=== PATIENT | female | born 1975 | race Caucasian/White ===

== ENCOUNTER 2017-05-21 06:48 | Inpatient (IN) | payer BC ==
--- NOTE | 2017-05-22 06:32 | PCM.LDHP ---
L&D History of Present Illness - General Date of Service: 05/22/17 Admit Problem/Dx: Admission Diagnosis/Problem Admission Diagnosis/Problem 05/22/17 06:17 41-year-old 11 para 5055 with an JAY of 05/31/2017. With an 8.7 cm placenta/umbilical cord cyst admitted for a induction of labor. Source of Information: Patient History Limitations: Reports: No Limitations - History of Present Illness Introduction:: Jalyn Ferguson" is a 41-year-old 11 para 5055 white female who is admitted for induction of labor because of a large placental/vocal cord cyst which is developed during the course of her . It has reached a size 9.9 cm and on last ultrasound on 05/19/2017 decreased 8.7 cm. Because of this and concerns related to follow it might and she is presently at 38-5/7 weeks gestational age. Discussion has been held with patient concerning induction. She has been induced in the past and is aware of the procedure, risks, benefits and possible complications and alternatives. She wishes to proceed. 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 JAY set at 05/31/2017 by last menstrual period which was certain in nature, using no contraception the time of conception and occurring on 08/24/2016. Patient has had numerous ultrasounds since that time supportive of her LMP dating. Her obstetric history includes miscarriages 5 with one of those occurring in second trimester. She has had 5 full-term deliveries. Largest baby is benign pounds 2 ounces. All have been born via spontaneous vaginal delivery. She had menarche at age 15. Cycles somewhat irregular. HCG is positive on 09/20/2016. LMP started 08/24/2016. Etiology of miscarriages was not determined. course patient has had a course that been remarkable with the exception of the development of the umbilical cord/placental cyst. This is noted on her very first visit. It had grown to 9.9 cm last week but has not decreased 8.7 cm. It does not appear to be a vascular structure and is not felt to be a potential problem with the actual delivery. Discussion with [facility] indicates most probable problem with this would be shunting of blood. This does not appear to have happened with multiple ultrasounds, biophysical profiles and growth evaluations indicating normal growth and well-being. Risk factors for include age of 41, group B strep positive status, history of macrosomic infant with 9 lbs. 2 oz. baby delivered previously, multiple losses and the umbilical cord cyst. Her depression screening score on 12/29/2016 was normal at 0/30. HeartMate test was done on 02/22 and returned normal with the biophysical profiles have been normal. Patient was seen early in the with first visit seen on 2016 at 13 weeks and 5 days. Her weight increased from 197 pounds at that point to 217 pounds for a 20 pound weight gain. Her vital signs are stable throughout the course. Fundal height growth was appropriate and also ultrasound estimated growth was normal. Laboratory testing and shows blood which is AB+. Initial hemoglobin was 12.7 g/dL and platelets were 204,000. Pap smear was normal. She is rubella immune. RPR is nonreactive. Urine culture was positive and C4 group B strep. Hepatitis B and HIV assays were both negative as were Chlamydia and gonorrhea assays. Her second trimester testing showed a hemoglobin which is mildly decreased at 11.1 g/dL. Platelets are 179,000. One-hour GTT was normal at 129. Her group B strep screen was positive. Allergies: none Medications: 1. vitamins. 2. Ferrous sulfate 325 mg daily Past medical history: 1. Vaginal delivery 5 2. Miscarriage 5 Past surgical history: 1. D&C 2 in November 2013 and July 2016 Family history: Mother is alive and well. Father is secondary to depression. Sr. alive with Crohn's. Brother alive with MS. Maternal grandmother secondary to old age. Maternal grandfather secondary to stroke. Paternal grandmother kidney disease. Paternal grandfather with history of stroke. Maternal aunt with breast cancer. Cousins with multiple losses. Has a history of breast cancer and has had a double mastectomy. One cousin with spina bifida. Social history. Patient is . is Ruben Olson. She does not use any significant loss of alcohol, drugs or tobacco. She lives in [place]. 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 Review of systems: General patient has been doing well. Some minimal edema in lower extremities. She has been working steadily up until the delivery date. Skin:negative Cardiovascular: No chest pain or exercise intolerance Respiratory: No shortness of breath or infectious symptoms Breasts: Changes associated only GI: Negative. : changes Neurologic: Negative Musculoskeletal: Bilateral lower extremity edema secondary to . Patient wear support stockings Physical exam: In general patient is well-developed well-nourished pleasant female stated age in no acute distress. Blood pressure on last evaluation clinic was 110/72, weight was 217 pounds with first weight 197 pounds. heart rate was 127. Height is 5 feet 10 inches. Prepregnancy body mass index is 26.5. General the patient is a well-developed, well-nourished, pleasant female stated age stress. Skin is warm and dry without lesions. HEENT, neck and back within normal limits. Lungs are clear with good breath sounds in all lung kong. Cardiovascular exam shows regular rate and rhythm without murmurs. Breast exam is deferred having been done at first visit and found to be negative/normal Abdomen is protuberant with with fundal height of 38 cm. Baby in vertex presentation. Cervical evaluation shows cervix to be 2+ centimeters, 80% effaced, soft, -3, mid position Extremities show 1+ pitting edema, no other abnormalities Neurological exam is grossly within normal limits. - Related Data Allergies/Adverse Reactions: Allergies Allergy/AdvReac Type Severity Reaction Status Date / Time No Known Allergies Allergy Verified 07/08/16 10:36 Home Medications: Home Meds . 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 Other OB/BYN History: previous 18 week loss Endocrine/Metabolic History: Reports: Obesity/BMI 30+ Oncologic (Cancer) History: Reports: None - Past Surgical History Female Surgical History: Reports: D&C Social & Family History - Tobacco Use Smoking Status *Q: Never Smoker Second Hand Smoke Exposure: No - Alcohol Use Days Per Week of Alcohol Use: 0 - Recreational Drug Use Recreational Drug Use: No H&P Review of Systems - Review of Systems: Review Of Systems: See Below L&D Exam - Exam Exam: See Below - Vital Signs Weight: 97.522 kg Problem List Initiated/Reviewed/Updated: Yes Assessment/Plan Comment:: Assessment: 1. 38-5/7 week intrauterine , history of large umbilical cord/ placental cyst now at 8.7 cm with patient admitted for duction of labor. Procedure, risks, benefits, alternatives of care discussed with patient. She appears to understand and wishes to proceed 2. Group B strep positive candidate for ampicillin prophylaxis in labor and delivery. 3. Patient is open to epidural for analgesia 4. Plans to nurse Plan: 1. Pitocin/artificial rupture of membranes induction of labor. 2. Ampicillin per protocol for the strep prophylaxis. 3. Support patient's plan to nurse 4. Epidural when necessary 5. Anticipate normal spontaneous vaginal
[2017-05-22] MEDS ORDERED: Sodium Chloride 0.9% 10 ML Syringe FLUSH PRN (06:34)
[2017-05-22] MEDS ORDERED: Ondansetron 4 MG/2 ML SDV IVPUSH PRN ×2 (06:34→16:03)
[2017-05-22] MEDS ORDERED: Ampicillin 2 GM in Sodium Chloride 0.9% 100 ML IV ONE (06:34)
[2017-05-22] MEDS ORDERED: Nalbuphine 20 MG/1 ML Amp IVPUSH PRN (06:34)
[2017-05-22] MEDS ORDERED: Lidocaine 1% 50 ML MDV INJECT ONE (06:34)
[2017-05-22] MEDS ORDERED: Lactated Ringers 1,000 ML IV SCH (06:45)
[2017-05-22] MEDS ORDERED: Oxytocin/Lactated Ringers 10 UNIT/1,000 ML BAG IV SCH (06:45)
[2017-05-22] MEDS: Ampicillin 1 GM in Sodium Chloride 0.9% 100 ML IV SCH ×2 (11:40→15:08)
[2017-05-22] MEDS ORDERED: Bupivacaine 0.5% 30 ML SDV ONE (15:29)
[2017-05-22] MEDS ORDERED: Metoclopramide 10 MG/2 ML SDV ONE (15:32)
[2017-05-22] MEDS ORDERED: Citric Acid/Sodium Citrate Solution 30 ML Cup ONE (15:32)
[2017-05-22] MEDS ORDERED: Metoclopramide 10 MG/2 ML SDV IVPUSH ONE (15:40)
[2017-05-22] MEDS ORDERED: Citric Acid/Sodium Citrate Solution 30 ML Cup PO ONE (15:40)
--- NOTE | 2017-05-22 15:40 | PCM.SN ---
- Free Text/Narrative Note: To labor and delivery as patient is nearly complete. Evaluation patient is found to b intact and with a breech. Feels like tray breech. Ultrasound confirms what appears to be almost an oblique lie with bit with baby is breech in the left lower quadrant and head and right upper quadrant. This is a change from previous evaluation. Discussed with the patient and her concerning section delivery, risks, benefits, alternatives including vaginal delivery. They wish to proceed with section and consent is signed.
[2017-05-22] MEDS ORDERED: Morphine PF 10 MG/10 ML SDV ONE (15:46)
[2017-05-22] MEDS ORDERED: Succinylcholine 200 MG/10 ML MDV ONE (15:53)
[2017-05-22] MEDS ORDERED: Propofol 200 MG/20 ML SDV ONE (15:54)
[2017-05-22] MEDS ORDERED: Methylergonovine 0.2 MG/1 ML Amp ONE (15:59)
[2017-05-22] MEDS ORDERED: Meperidine PF 50 MG/ML Syringe IVPUSH PRN (16:03)
[2017-05-22] MEDS ORDERED: fentaNYL 100 MCG/2 ML SDV IVPUSH PRN (16:03)
[2017-05-22] MEDS ORDERED: Oxytocin 10 Units/1 ML SDV ONE ×2 (16:08→17:53)
--- NOTE | 2017-05-22 16:08 | PCM.PREANE ---
Preanesthetic Assessment - Procedure Proposed Procedure: Stat csection.- preop assessment quickly gone over with patient prior to OR. Discussed general anesthesia. - Anesthesia/Transfusion/Family Hx Anesthesia History: Prior Anesthesia Without Reaction Transfusion History: No Prior Transfusion(s) - Review of Systems General: No Symptoms Pulmonary: No Symptoms Cardiovascular: No Symptoms Gastrointestinal: No Symptoms Neurological: No Symptoms Other: Reports: None - Physical Assessment NPO Status Date: 05/22/17 NPO Status Time: 06:30 (sips water all day') Respiratory Rate: 18 Vital Signs: Last Vital Signs Temp 97.9 F 05/22/17 07:30 Pulse 89 05/22/17 07:30 Resp 18 05/22/17 07:30 BP 132/73 05/22/17 07:30 Pulse Ox Height: 5 ft 10 in Weight: 98.43 kg Mental Status: Alert & Oriented x3 Airway Class: Mallampati = 1 Dentition: Reports: Normal Dentition Thyro-Mental Finger Breadths: 3 Mouth Opening Finger Breadths: 3 ROM/Head Extension: Full Lungs: Clear to Auscultation, Normal Respiratory Effort Cardiovascular: Regular Rate, Regular Rhythm - Lab Values: Laboratory Last Values WBC 6.22 K/mm3 (3.98-10.04) 05/22/17 07:30 RBC 3.73 M/mm3 (3.98-5.22) L 05/22/17 07:30 Hgb 10.4 gm/L (11.2-15.7) L 05/22/17 07:30 Hct 31.5 % (34.1-44.9) L 05/22/17 07:30 MCV 84.5 fl (79.4-94.8) 05/22/17 07:30 MCH 27.9 pg (25.6-32.2) 05/22/17 07:30 MCHC 33.0 g/dl (32.2-35.5) 05/22/17 07:30 RDW Std Deviation 41.5 fL (36.4-46.3) 05/22/17 07:30 Plt Count 167 K/mm3 (182-369) L 05/22/17 07:30 MPV 9.4 fl (9.4-12.3) 05/22/17 07:30 Neut % (Auto) 73.0 % (34.0-71.1) H 05/22/17 07:30 Lymph % (Auto) 19.6 % (19.3-51.7) 05/22/17 07:30 [place] % (Auto) 6.3 % (4.7-12.5) 05/22/17 07:30 Eos % (Auto) 0.6 (0.7-5.8) L 05/22/17 07:30 Baso % (Auto) 0.2 % (0.1-1.2) 05/22/17 07:30 Neut # (Auto) 4.54 K/mm3 (1.56-6.13) 05/22/17 07:30 Lymph # (Auto) 1.22 K/mm3 (1.18-3.74) 05/22/17 07:30 [place] # (Auto) 0.39 K/mm3 (0.24-0.36) H 05/22/17 07:30 Eos # (Auto) 0.04 K/mm3 (0.04-0.36) 05/22/17 07:30 Baso # (Auto) 0.01 K/mm3 (0.01-0.08) 05/22/17 07:30 Blood Type A POSITIVE 05/22/17 07:30 Gel Antibody Screen Negative 05/22/17 07:30 - Allergies Allergies/Adverse Reactions: Allergies Allergy/AdvReac Type Severity Reaction Status Date / Time No Known Allergies Allergy Verified 07/08/16 10:36 - Blood Blood Available: No - Acknowledgements Anesthesia Type Planned: General Anesthesia Pt an Appropriate Candidate for the Planned Anesthesia: Yes Alternatives and Risks of Anesthesia Discussed w Pt/Guardian: Yes Pt/Guardian Understands and Agrees with Anesthesia Plan: Yes PreAnesthesia Questionnaire - Past Health History Medical/Surgical History: Denies Medical/Surgical History HEENT History: Reports: Impaired Vision Cardiovascular History: Reports: None Respiratory History: Reports: None Gastrointestinal History: Reports: None 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 Pt has an 8cm cyst on placents/umbillical cord. Endocrine/Metabolic History: Reports: Obesity/BMI 30+ Oncologic (Cancer) History: Reports: None - Past Surgical History Other HEENT Surgeries/Procedures: Pt wears glasses Female Surgical History: Reports: D&C - SUBSTANCE USE Smoking Status *Q: Never Smoker Tobacco Use Within Last Twelve Months: No Second Hand Smoke Exposure: No Days Per Week of Alcohol Use: 0 Recreational Drug Use History: No - HOME MEDS Home Medications: Home Meds Vit W-Ca,Fe,FA(<1 mg) [ Vitamins] 1 tab PO DAILY 05/22/17 [ History] - CURRENT (IN HOUSE) MEDS Current Meds: Current Medications Ampicillin Sodium 1 gm/ Sodium (Chloride) 100 mls @ 200 mls/hr IV Q4H TAE Last Admin: 05/22/17 15:08 Dose: 200 mls/hr Lactated Ringer's (Ringers, Lactated) 1,000 mls @ 100 mls/hr IV ASDIRECTED TAE Last Admin: 05/22/17 07:49 Dose: 100 mls/hr Oxytocin/Lactated Ringer's (Pitocin In Lr 10 Units/1,000 Ml) 10 unit in 1,000 mls @ 12 mls/hr IV TITRATE TAE; 2 MUNITS/MIN PRN Reason: Protocol Last Titration: 05/22/17 10:35 Dose: 12 munits/min, 72 mls/hr Nalbuphine HCl (Nubain) 10 mg IVPUSH Q2H PRN PRN Reason: Pain (moderate 4-6) Ondansetron HCl (Zofran) 4 mg IVPUSH Q4H PRN PRN Reason: Nausea/Vomiting Sodium Chloride (Saline Flush) 10 ml FLUSH ASDIRECTED PRN PRN Reason: Keep Vein Open Discontinued Medications Bupivacaine HCl (Marcaine 0.5%) Confirm Administered Dose 30 ml .ROUTE .STK-MED ONE Stop: 05/22/17 15:30 Citric Acid/Sodium Citrate (Bicitra Solution) Confirm Administered Dose 30 ml .ROUTE .STK-MED ONE Stop: 05/22/17 15:33 Citric Acid/Sodium Citrate (Bicitra Solution) 30 ml PO ONETIME ONE Stop: 05/22/17 15:41 Dexamethasone (Dexamethasone) Confirm Administered Dose 4 mg .ROUTE .STK-MED ONE Stop: 05/22/17 16:11 Fentanyl (Sublimaze) Confirm Administered Dose 100 mcg .ROUTE .STK-MED ONE Stop: 05/22/17 16:10 Fentanyl (Sublimaze) Confirm Administered Dose 250 mcg .ROUTE .STK-MED ONE Stop: 05/22/17 16:12 Ampicillin Sodium 2 gm/ Sodium (Chloride) 100 mls @ 200 mls/hr IV ONETIME ONE Stop: 05/22/17 07:03 Last Admin: 05/22/17 07:32 Dose: 200 mls/hr Ketorolac Tromethamine (Toradol) Confirm Administered Dose 30 mg .ROUTE .STK- MED ONE Stop: 05/22/17 16:10 Lidocaine HCl (Xylocaine 1%) 10 ml INJECT ONETIME ONE Stop: 05/22/17 06:35 Metoclopramide HCl (Reglan) Confirm Administered Dose 10 mg .ROUTE .STK-MED ONE Stop: 05/22/17 15:33 Metoclopramide HCl (Reglan) 10 mg IVPUSH ONETIME ONE Stop: 05/22/17 15:41 Morphine Sulfate (Duramorph Pf) Confirm Administered Dose 10 mg .ROUTE .STK-MED ONE Stop: 05/22/17 15:47 Ondansetron HCl (Zofran) Confirm Administered Dose 4 mg .ROUTE .STK-MED ONE Stop: 05/22/17 16:11 Oxytocin (Pitocin) Confirm Administered Dose 20 unit .ROUTE .STK-MED ONE Stop: 05/22/17 16:09 Propofol (Diprivan 20 Ml) Confirm Administered Dose 200 mg .ROUTE .STK-MED ONE Stop: 05/22/17 15:55 Succinylcholine Chloride (Quelicin) Confirm Administered Dose 200 mg .ROUTE .STK -MED ONE Stop: 05/22/17 15:54
[2017-05-22] MEDS ORDERED: fentaNYL 100 MCG/2 ML SDV ONE ×2 (16:09→16:35)
[2017-05-22] MEDS ORDERED: Ketorolac 30 MG/ML SDV ONE (16:09)
[2017-05-22] MEDS ORDERED: Ondansetron 4 MG/2 ML SDV ONE (16:10)
[2017-05-22] MEDS ORDERED: Dexamethasone 4 MG/ML SDV ONE (16:10)
[2017-05-22] MEDS ORDERED: fentaNYL 250 MCG/5 ML SDV ONE (16:11)
[2017-05-22] MEDS ORDERED: Lactated Ringers 1,000 ML ONE ×2 (16:21→16:54)
[2017-05-22] MEDS ORDERED: Phenylephrine 1% 10 MG/ML SDV ONE (16:29)
[2017-05-22] MEDS ORDERED: HYDROmorphone 1 MG/ML Syringe ONE (16:37)
--- NOTE | 2017-05-22 17:11 | PCM.POSTAN ---
POST ANESTHESIA ASSESSMENT - MENTAL STATUS Mental Status: Alert, Oriented - VITAL SIGNS Pulse Rate: 105 SaO2: 100 Resp Rate: 12 Blood Pressure: 120/68 Temperature: 97 F - RESPIRATORY Respiratory Status: Respiratory Rate WNL, Airway Patent, O2 Saturation Stable, Supplemental Oxygen - CARDIOVASCULAR CV Status: Pulse Rate WNL, Blood Pressure Stable - GASTROINTESTINAL GI Status: No Symptoms - PAIN Pain Score: 8 - POST OP HYDRATION Hydration Status: Adequate & Stable
--- NOTE | 2017-05-22 17:21 | PCM.OPNOTE ---
- General Post-Op/Procedure Note Date of Surgery/Procedure: 05/22/17 Operative Procedure(s): Primary lower uterine segment transverse section through Pfannenstiel skin incision Findings: Baby is in tray breech presentation was brought in the left lower quadrant. The head was in the right upper quadrant. An neck fluid was clear but minimal in amount. Lower uterine segment was very thin at 2-3 mm. A result extension of the uterine incision into the right cervical area to the vagina. Uterus otherwise tubes and ovaries were unremarkable for term . Baby weighed 8 lbs. 5 oz., and Apgars of 7 and 8 Pre Op Diagnosis: 38-5/7 week intrauterine , tray breech presentation Post-Op Diagnosis: Same with delivery of an 8 lbs. 5 oz. female infant with Apgars of 7 and 9 at 1553 hrs. on 05/22/2017. Anesthesia Technique: General ET Tube Other Anesthesia Type: Marcaine 0.5% 20 mL local Primary Surgeon: Tony Maldonado Secondary Surgeon: Travis Monterroso Anesthesia Provider: Sheila Bryant Reason Order Builder Loader Was Necessary: Retraction Role of Order Builder Loader: Retraction Fluid Replacement, Intraop: 3,000 Output, Urine Amount: 100 EBL in mLs: 1,600 Drain/Tube Comments:: Indwelling bladder catheter Complications: Blood loss 1600 mL, right cervical laceration into the vagina Condition: Good Free Text/Narrative:: Intake & Output 05/22/17 05/22/17 05/22/17 06:59 14:59 22:59 Intake Total 200 Balance 200 Surgery duration: One hour Procedure: Patient was transferred to the room and placed in a supine position with a wedge under her right side. General endotracheal anesthesia was administered because of the emergent nature of the procedure. The patient was prepped with Betadine and draped in usual fashion after Goldsmith catheter was already placed . 20 mL of Marcaine 0.5% was injected locally in the Pfannenstiel incision site. The Pfannenstiel skin incision was then made carried down to skin subcutaneous and fascial layers. The fascia was then undermined superiorly and inferiorly to allow for adequate operating room the recti muscles midline and preperitoneal fat was bluntly dissected. Peritoneal cavity was entered longitudinally. The vesicouterine peritoneum was then incised transversely and bladder flap was developed. Myometrium was found to be very thin. Myometrium was incised transversely to the level of the amniotic sac. This incision was extended bilaterally in a blunt fashion. The amniotic sac was then ruptured resulting clear amniotic fluid. A hand is placed in the low uterine segment and the baby's breech was brought forth through the incision. The baby was completely delivered using fundal pressure and complete breech extraction technique in a routine fashion. The nose and mouth were bulb suctioned. Baby's cord was clamped x2 cut and baby was handed off to attending designer Dr Limon. A segment of cord was clamped and sent for cord gases. Placenta was expressed after cord blood was obtained. Uterus was then exteriorized to allow for easier closure. The cervix was assessed and found to be dilated adequately to allow egress of blood. The uterus was closed in 2 layers. The first layer a running locked suture of 0 Monocryl, the second layer a running locked vertical mattress suture of 0 Monocryl. It should be noted that the incision extended down through the cervix and into the upper part of vagina on the right side. Care was taken to identify the bladder and uterine vasculature. Several small bleeders were cauterized. 2 bleeding at the right and the incision were controlled with [id number] sutures of 0 Monocryl. [id number] sutures were used on the left-sided incision also care taken avoid injury to the bowel. A short running suture of 1 vessel in the lower uterine segment was accomplished with 3-0 Monocryl. Because of the increased amount of moistness the patient was then treated with a large piece of Gelfoam in the lower uterine segment area. After this was placed hemostasis was confirmed. Sponge instrument needle counts are correct. The uterus was returned to the abdominal cavity and lateral gutters were cleared of blood. Once again sponge needle counts are correct. The anterior abdominal wall was closed with a #1 PDS suture from angle to angle. The subcutaneous area was found to be free of any bleeders. 2 interrupted sutures of 0 Vicryl were used to reapproximate the subcutaneous layer.Skin was closed with a running subcuticular stitch of 3-0 Monocryl in a vertical mattress suture fashion using a Beny needle. Prineo mesh /glue was then applied to further approximate the incision. It should be noted that patient had just received a gram of ampicillin preoperatively for group B strep prophylaxis therefore Ancef was not given prophylactically. She had Pitocin infused after delivery of the placenta to facilitate uterine contraction. A single dose of Methergine 0.2 mg IM was given to facilitate uterine tone and decreased bleeding. It should be noted she had sequential compression stockings in place for DVT prophylaxis. The patient was awakened from general endotracheal anesthesia. She was discharged from the operating room in satisfactory condition.
[2017-05-22] MEDS: HYDROmorphone 0.5 MG/0.5 ML Syringe IVPUSH PRN ×2 (17:23→17:48)
[2017-05-22] MEDS ORDERED: Dextrose 5%-Lactated Ringers 1,000 ML IV SCH (18:20)
[2017-05-22] MEDS ORDERED: Naloxone 0.4 MG/ML SDV IVPUSH PRN (18:20)
[2017-05-22] MEDS ORDERED: ePHEDrine 50 MG/ML SDV IVPUSH PRN (18:20)
[2017-05-22] MEDS ORDERED: Lanolin 100% Cream 7 GM Tube TOP PRN (18:20)
[2017-05-22] MEDS ORDERED: diphenhydrAMINE 50 MG/ML SDV IVPUSH PRN (18:20)
[2017-05-22] MEDS ORDERED: Ondansetron 4 MG/2 ML SDV IV PRN (18:20)
[2017-05-22] MEDS ORDERED: Morphine 4 MG/ML Syringe IVPUSH PRN (18:20)
[2017-05-22] MEDS ORDERED: Gelatin Sponge,Absorbable 12-7 mm Sponge TOP ONE (20:20)
[2017-05-22] MEDS: Docusate Sodium 100 MG Cap PO PRN (20:46)
[2017-05-22] MEDS: Simethicone 80 MG Tab.Chew PO SCH ×3 (20:46→23:15)
[2017-05-22] MEDS: Acetaminophen/oxyCODONE 325-5 MG Tab PO PRN (20:47)
[2017-05-22] MEDS: Ibuprofen 800 MG Tab PO SCH (22:30)
[2017-05-23] MEDS: Acetaminophen/oxyCODONE 325-5 MG Tab PO PRN ×3 (02:35→16:21)
[2017-05-23] MEDS: Ibuprofen 800 MG Tab PO SCH ×2 (06:01→14:06)
[2017-05-23] MEDS: Prenatal Multivitamin with Calcium/Folic Acid/Iron Tab PO SCH (08:54)
[2017-05-23] MEDS: Simethicone 80 MG Tab.Chew PO SCH ×3 (08:54→18:19)
[2017-05-23] MEDS: Docusate Sodium 100 MG Cap PO PRN (08:54)
--- NOTE | 2017-05-23 10:28 | PCM.SN ---
- Free Text/Narrative Note: Post Operative Progress Note POD # 1 Subjective: Doing well overall. Ambulating without difficulty. Lochia minimal. Goldsmith catheter draining clear urine prior to removal, patient up to void this morning. Not passing flatus. Tolerating regular diet. Pain controlled with oral medications. Breast feeding with minimal difficulty. Objective: Vitals: Vital Signs - 8 hr 05/23/17 05/23/17 04:00 08:08 Temperature 36.7 C 36.6 C Pulse, 95 99 Peripheral Respiratory 15 14 Rate Blood Pressure 121/62 110/61 O2 Sat by Pulse 98 96 Oximetry Physical Exam General: Alert and oriented, no acute distress Lungs: Clear to auscultation bilaterally Heart: Regular rate and rhythm Abdomen: Soft, minimal appropriate tenderness, non-distended, fundus midline, nontender and below the umbilicus Incision: Dried blood with the incision dry and intact, no erythema, bleeding or drainage Extremities: Trace edema in lower extremities bilaterally to mid shins Labs: Laboratory Results - last 24 hr 05/22/17 05/22/17 05/22/17 Range/Units 07:30 16:00 17:42 WBC 37.93 H (3.98-10.04) K/mm3 RBC 3.86 L (3.98-5.22) M/mm3 Hgb 10.9 L (11.2-15.7) gm/L Hct 32.7 L (34.1-44.9) % MCV 84.7 (79.4-94.8) fl MCH 28.2 (25.6-32.2) pg MCHC 33.3 (32.2-35.5) g/dl RDW Std Deviation 43.6 (36.4-46.3) fL Plt Count 331 (182-369) K/mm3 MPV 9.4 (9.4-12.3) fl Neut % (Auto) 91.3 H (34.0-71.1) % Lymph % (Auto) 4.7 L (19.3-51.7) % Deuel % (Auto) 3.3 L (4.7-12.5) % Eos % (Auto) 0 L (0.7-5.8) Baso % (Auto) 0.1 (0.1-1.2) % Neut # (Auto) 34.60 H (1.56-6.13) K/mm3 Lymph # (Auto) 1.80 (1.18-3.74) K/mm3 Deuel # (Auto) 1.27 H (0.24-0.36) K/mm3 Eos # (Auto) 0.01 L (0.04-0.36) K/mm3 Baso # (Auto) 0.04 (0.01-0.08) K/mm3 Manual Slide Review Abnormal smear Cord ABG pH 7.25 (7.22-7.32) Cord ABG pCO2 48.9 (42-58) Cord ABG pO2 42 H (12-24) Cord ABG HCO3 20.6 L (24-26) Cord ABG Base Excess -6.7 L (-5.5-0.1) Sodium (136-145) mEq/L Potassium (3.5-5.1) mEq/L Chloride (98-107) mEq/L Carbon Dioxide (21-32) mEq/L Anion Gap (5-15) BUN (7-18) mg/dL Creatinine 0.7 (0.55-1.02) mg/dL Est Cr Clr Drug Dosing 116.68 mL/min Estimated GFR (MDRD) > 60 (>60) mL/min BUN/Creatinine Ratio (14-18) Glucose (74-106) mg/dL Calcium (8.5-10.1) mg/dL Total Bilirubin (0.2-1.0) mg/dL AST (15-37) U/L ALT (14-59) U/L Alkaline Phosphatase (46-116) U/L Total Protein (6.4-8.2) g/dl Albumin (3.4-5.0) g/dl Globulin gm/dL Albumin/Globulin Ratio (1-2) 05/22/17 05/22/17 05/23/17 Range/Units 21:00 21:00 06:06 WBC 13.03 H (3.98-10.04) K/mm3 RBC 2.63 L (3.98-5.22) M/mm3 Hgb 8.4 L 7.3 L* (11.2-15.7) gm/L Hct 25.2 L 22.1 L (34.1-44.9) % MCV 84.0 (79.4-94.8) fl MCH 27.8 (25.6-32.2) pg MCHC 33.0 (32.2-35.5) g/dl RDW Std Deviation 40.7 (36.4-46.3) fL Plt Count 261 (182-369) K/mm3 MPV 9.3 L (9.4-12.3) fl Neut % (Auto) (34.0-71.1) % Lymph % (Auto) (19.3-51.7) % Deuel % (Auto) (4.7-12.5) % Eos % (Auto) (0.7-5.8) Baso % (Auto) (0.1-1.2) % Neut # (Auto) (1.56-6.13) K/mm3 Lymph # (Auto) (1.18-3.74) K/mm3 Deuel # (Auto) (0.24-0.36) K/mm3 Eos # (Auto) (0.04-0.36) K/mm3 Baso # (Auto) (0.01-0.08) K/mm3 Manual Slide Review Cord ABG pH (7.22-7.32) Cord ABG pCO2 (42-58) Cord ABG pO2 (12-24) Cord ABG HCO3 (24-26) Cord ABG Base Excess (-5.5-0.1) Sodium 135 L (136-145) mEq/L Potassium 3.7 (3.5-5.1) mEq/L Chloride 102 (98-107) mEq/L Carbon Dioxide 20 L (21-32) mEq/L Anion Gap 16.7 H (5-15) BUN 5 L (7-18) mg/dL Creatinine 0.7 (0.55-1.02) mg/dL Est Cr Clr Drug Dosing 116.68 mL/min Estimated GFR (MDRD) > 60 (>60) mL/min BUN/Creatinine Ratio 7.1 L (14-18) Glucose 173 H (74-106) mg/dL Calcium 8.1 L (8.5-10.1) mg/dL Total Bilirubin 0.7 (0.2-1.0) mg/dL AST 22 (15-37) U/L ALT 15 (14-59) U/L Alkaline Phosphatase 68 (46-116) U/L Total Protein 4.7 L (6.4-8.2) g/dl Albumin 2.2 L (3.4-5.0) g/dl Globulin 2.5 gm/dL Albumin/Globulin Ratio 0.9 L (1-2) ASSESSMENT: 41-year-old female G 11 P 6056 s/p primary section POD #1 for breech presentation, complicated by placental cyst, positive group B strep, advanced maternal age, and grand multiparity PLAN: Doing well Breast feeding with minimal difficulty. Assist as needed Incision healing well. Continue to keep clean and dry. Lochia minimal. Continue to monitor for appropriate lochia. Continue routine post-operative care Continue to monitor for signs of severe anemia that may require blood transfusion. Continue close monitoring of vital signs and will recheck CBC as indicated Anticipate discharge home tomorrow or postop day #3 Travis Monterroso MD 10:25 AM 05/23/17
--- NOTE | 2017-05-23 11:56 | PCM48HPAN ---
Post Anesthesia Note - EVALUATION WITHIN 48HRS OF ANESTHETIC Vital Signs in Normal Range: Yes Patient Participated in Evaluation: Yes Respiratory Function Stable: Yes Airway Patent: Yes Cardiovascular Function Stable: Yes Hydration Status Stable: Yes Pain Control Satisfactory: Yes Nausea and Vomiting Control Satisfactory: Yes Mental Status Recovered: Yes - COMMENTS/OBSERVATIONS Free Text/Narrative:: Patient denied any PONV but is complaining of some tolerable incisional pain.
[2017-05-24] MEDS: Simethicone 80 MG Tab.Chew PO SCH ×2 (00:59→09:08)
[2017-05-24] MEDS: Ibuprofen 800 MG Tab PO SCH ×2 (00:59→09:07)
[2017-05-24] MEDS: Acetaminophen/oxyCODONE 325-5 MG Tab PO PRN (01:01)
[2017-05-24 04:23] VITALS: BP 110/53
[2017-05-24] MEDS ORDERED: FLU Vacc QS 2017-18 (6mos UP)/PF 60 MCG/0.5 ML Syringe IM ONE (08:58)
--- NOTE | 2017-05-24 09:06 | PCM.SN ---
- Free Text/Narrative Note: Post Operative Progress Note POD # 2 Subjective: Doing well overall. Ambulating without difficulty reports that her dizziness when ambulating has resolved. Lochia minimal. Voiding without difficulty. Passing flatus. Tolerating regular diet. Pain improving and continues to be controlled with oral medications. Reports just feeling sore overall and mostly in her abdomen. Breast feeding with minimal difficulty. Objective: Vitals: Vital Signs - 8 hr 05/24/ 03:37 Temperature 36.4 C Pulse, 99 Peripheral Respiratory 17 Rate Blood Pressure 110/53 L O2 Sat by Pulse 97 Oximetry Physical Exam General: Alert and oriented, no acute distress Lungs: Clear to auscultation bilaterally Heart: Regular rate and rhythm Abdomen: Soft, minimal appropriate tenderness, non-distended, fundus midline, nontender and below the umbilicus Incision: Small amount of dried blood on the Prineo dressing, no active bleeding or discharge, no erythema, appears intact Extremities: Trace edema in feet bilaterally ASSESSMENT: 41-year-old female G 11 P 6056 s/p primary section POD #2 for breech presentation, complicated by placental cyst, positive group B strep, advanced maternal age, and grand multiparity PLAN: Doing well Breast feeding with minimal difficulty. Assist as needed Incision healing well. Continue to keep clean and dry. Lochia minimal. Continue to monitor for appropriate lochia. Continue routine post-operative care Patient to initiate iron supplementation 2 times daily with meals. Anticipate discharge home today Travis Monterroso MD 9:07 AM 05/24/17
[2017-05-24] MEDS: Prenatal Multivitamin with Calcium/Folic Acid/Iron Tab PO SCH (09:07)
--- NOTE | 2017-05-24 09:14 | PCM.DCSUM1 ---
Discharge Summary - Hospital Course Free Text/Narrative:: Procedure: Patient was transferred to the room and placed in a supine position with a wedge under her right side. General endotracheal anesthesia was administered because of the emergent nature of the procedure. The patient was prepped with Betadine and draped in usual fashion after Goldsmith catheter was already placed . 20 mL of Marcaine 0.5% was injected locally in the Pfannenstiel incision site. The Pfannenstiel skin incision was then made carried down to skin subcutaneous and fascial layers. The fascia was then undermined superiorly and inferiorly to allow for adequate operating room the recti muscles midline and preperitoneal fat was bluntly dissected. Peritoneal cavity was entered longitudinally. The vesicouterine peritoneum was then incised transversely and bladder flap was developed. Myometrium was found to be very thin. Myometrium was incised transversely to the level of the amniotic sac. This incision was extended bilaterally in a blunt fashion. The amniotic sac was then ruptured resulting clear amniotic fluid. A hand is placed in the low uterine segment and the baby's breech was brought forth through the incision. The baby was completely delivered using fundal pressure and complete breech extraction technique in a routine fashion. The nose and mouth were bulb suctioned. Baby's cord was clamped x2 cut and baby was handed off to attending rehab office coordinator Dr Limon. A segment of cord was clamped and sent for cord gases. Placenta was expressed after cord blood was obtained. Uterus was then exteriorized to allow for easier closure. The cervix was assessed and found to be dilated adequately to allow egress of blood. The uterus was closed in 2 layers. The first layer a running locked suture of 0 Monocryl, the second layer a running locked vertical mattress suture of 0 Monocryl. It should be noted that the incision extended down through the cervix and into the upper part of vagina on the right side. Care was taken to identify the bladder and uterine vasculature. Several small bleeders were cauterized. 2 bleeding at the right and the incision were controlled with oxrthc-iu-igsjl sutures of 0 Monocryl. Ucoyql-sq-qoxal sutures were used on the left-sided incision also care taken avoid injury to the bowel. A short running suture of 1 vessel in the lower uterine segment was accomplished with 3-0 Monocryl. Because of the increased amount of moistness the patient was then treated with a large piece of Gelfoam in the lower uterine segment area. After this was placed hemostasis was confirmed. Sponge instrument needle counts are correct. The uterus was returned to the abdominal cavity and lateral gutters were cleared of blood. Once again sponge needle counts are correct. The anterior abdominal wall was closed with a #1 PDS suture from angle to angle. The subcutaneous area was found to be free of any bleeders. 2 interrupted sutures of 0 Vicryl were used to reapproximate the subcutaneous layer.Skin was closed with a running subcuticular stitch of 3-0 Monocryl in a vertical mattress suture fashion using a Beny needle. Prineo mesh /glue was then applied to further approximate the incision. It should be noted that patient had just received a gram of ampicillin preoperatively for group B strep prophylaxis therefore Ancef was not given prophylactically. She had Pitocin infused after delivery of the placenta to facilitate uterine contraction. A single dose of Methergine 0.2 mg IM was given to facilitate uterine tone and decreased bleeding. It should be noted she had sequential compression stockings in place for DVT prophylaxis. The patient was awakened from general endotracheal anesthesia. She was discharged from the operating room in satisfactory condition. HPI Initial Comments: Procedure: Patient was transferred to the room and placed in a supine position with a wedge under her right side. General endotracheal anesthesia was administered because of the emergent nature of the procedure. The patient was prepped with Betadine and draped in usual fashion after Goldsmith catheter was already placed . 20 mL of Marcaine 0.5% was injected locally in the Pfannenstiel incision site. The Pfannenstiel skin incision was then made carried down to skin subcutaneous and fascial layers. The fascia was then undermined superiorly and inferiorly to allow for adequate operating room the recti muscles midline and preperitoneal fat was bluntly dissected. Peritoneal cavity was entered longitudinally. The vesicouterine peritoneum was then incised transversely and bladder flap was developed. Myometrium was found to be very thin. Myometrium was incised transversely to the level of the amniotic sac. This incision was extended bilaterally in a blunt fashion. The amniotic sac was then ruptured resulting clear amniotic fluid. A hand is placed in the low uterine segment and the baby's breech was brought forth through the incision. The baby was completely delivered using fundal pressure and complete breech extraction technique in a routine fashion. The nose and mouth were bulb suctioned. Baby's cord was clamped x2 cut and baby was handed off to attending rehab office coordinator Dr Limon. A segment of cord was clamped and sent for cord gases. Placenta was expressed after cord blood was obtained. Uterus was then exteriorized to allow for easier closure. The cervix was assessed and found to be dilated adequately to allow egress of blood. The uterus was closed in 2 layers. The first layer a running locked suture of 0 Monocryl, the second layer a running locked vertical mattress suture of 0 Monocryl. It should be noted that the incision extended down through the cervix and into the upper part of vagina on the right side. Care was taken to identify the bladder and uterine vasculature. Several small bleeders were cauterized. 2 bleeding at the right and the incision were controlled with zqnlud-zi-goznu sutures of 0 Monocryl. Pxmykb-jg-vzihp sutures were used on the left-sided incision also care taken avoid injury to the bowel. A short running suture of 1 vessel in the lower uterine segment was accomplished with 3-0 Monocryl. Because of the increased amount of moistness the patient was then treated with a large piece of Gelfoam in the lower uterine segment area. After this was placed hemostasis was confirmed. Sponge instrument needle counts are correct. The uterus was returned to the abdominal cavity and lateral gutters were cleared of blood. Once again sponge needle counts are correct. The anterior abdominal wall was closed with a #1 PDS suture from angle to angle. The subcutaneous area was found to be free of any bleeders. 2 interrupted sutures of 0 Vicryl were used to reapproximate the subcutaneous layer.Skin was closed with a running subcuticular stitch of 3-0 Monocryl in a vertical mattress suture fashion using a Beny needle. Prineo mesh /glue was then applied to further approximate the incision. It should be noted that patient had just received a gram of ampicillin preoperatively for group B strep prophylaxis therefore Ancef was not given prophylactically. She had Pitocin infused after delivery of the placenta to facilitate uterine contraction. A single dose of Methergine 0.2 mg IM was given to facilitate uterine tone and decreased bleeding. It should be noted she had sequential compression stockings in place for DVT prophylaxis. The patient was awakened from general endotracheal anesthesia. She was discharged from the operating room in satisfactory condition. Brief History: Procedure: Patient was transferred to the room and placed in a supine position with a wedge under her right side. General endotracheal anesthesia was administered because of the emergent nature of the procedure. The patient was prepped with Betadine and draped in usual fashion after Goldsmith catheter was already placed . 20 mL of Marcaine 0.5% was injected locally in the Pfannenstiel incision site. The Pfannenstiel skin incision was then made carried down to skin subcutaneous and fascial layers. The fascia was then undermined superiorly and inferiorly to allow for adequate operating room the recti muscles midline and preperitoneal fat was bluntly dissected. Peritoneal cavity was entered longitudinally. The vesicouterine peritoneum was then incised transversely and bladder flap was developed. Myometrium was found to be very thin. Myometrium was incised transversely to the level of the amniotic sac. This incision was extended bilaterally in a blunt fashion. The amniotic sac was then ruptured resulting clear amniotic fluid. A hand is placed in the low uterine segment and the baby's breech was brought forth through the incision. The baby was completely delivered using fundal pressure and complete breech extraction technique in a routine fashion. The nose and mouth were bulb suctioned. Baby's cord was clamped x2 cut and baby was handed off to attending rehab office coordinator Dr Limon. A segment of cord was clamped and sent for cord gases. Placenta was expressed after cord blood was obtained. Uterus was then exteriorized to allow for easier closure. The cervix was assessed and found to be dilated adequately to allow egress of blood. The uterus was closed in 2 layers. The first layer a running locked suture of 0 Monocryl, the second layer a running locked vertical mattress suture of 0 Monocryl. It should be noted that the incision extended down through the cervix and into the upper part of vagina on the right side. Care was taken to identify the bladder and uterine vasculature. Several small bleeders were cauterized. 2 bleeding at the right and the incision were controlled with rjqeez-da-nwkxp sutures of 0 Monocryl. Sfgasy-yf-xjvas sutures were used on the left-sided incision also care taken avoid injury to the bowel. A short running suture of 1 vessel in the lower uterine segment was accomplished with 3-0 Monocryl. Because of the increased amount of moistness the patient was then treated with a large piece of Gelfoam in the lower uterine segment area. After this was placed hemostasis was confirmed. Sponge instrument needle counts are correct. The uterus was returned to the abdominal cavity and lateral gutters were cleared of blood. Once again sponge needle counts are correct. The anterior abdominal wall was closed with a #1 PDS suture from angle to angle. The subcutaneous area was found to be free of any bleeders. 2 interrupted sutures of 0 Vicryl were used to reapproximate the subcutaneous layer.Skin was closed with a running subcuticular stitch of 3-0 Monocryl in a vertical mattress suture fashion using a Beny needle. Prineo mesh/glue was then applied to further approximate the incision. It should be noted that patient had just received a gram of ampicillin preoperatively for group B strep prophylaxis therefore Ancef was not given prophylactically. She had Pitocin infused after delivery of the placenta to facilitate uterine contraction. A single dose of Methergine 0.2 mg IM was given to facilitate uterine tone and decreased bleeding. It should be noted she had sequential compression stockings in place for DVT prophylaxis. The patient was awakened from general endotracheal anesthesia. She was discharged from the operating room in satisfactory condition. - Discharge Data Discharge Date: 05/24/17 Discharge Disposition: Home, Self-Care 01 Condition: Good - Discharge Diagnosis/Problem(s) (1) Status post primary low transverse section SNOMED Code(s): 445834331, 212202806, 442410824 ICD Code: Z98.891 - HISTORY OF UTERINE SCAR FROM PREVIOUS SURGERY Status: Acute (2) 38 weeks gestation of SNOMED Code(s): 56085292 ICD Code: Z3A.38 - 38 WEEKS GESTATION OF Status: Acute (3) AMA (advanced maternal age) multigravida 35+ SNOMED Code(s): 485518409 ICD Code: O09.529 - SUPERVISION OF ELDERLY MULTIGRAVIDA, UNSPECIFIED TRIMESTER Status: Acute (4) Grand multiparity with problem in third trimester SNOMED Code(s): 145175875 ICD Code: O09.43 - SUPRVSN OF W GRAND MULTIPARITY, THIRD TRIMESTER Status: Acute (5) Placental cyst affecting in third trimester SNOMED Code(s): 222034242, 362333299, 296114489 ICD Code: O43.193 - OTHER MALFORMATION OF PLACENTA, THIRD TRIMESTER Status : Acute (6) hemorrhage, delivered, current hospitalization SNOMED Code(s): 28115705 ICD Code: O72.1 - OTHER IMMEDIATE HEMORRHAGE Status: Acute - Patient Summary/Data Operative Procedure(s) Performed: Primary lower uterine segment transverse section through Pfannenstiel skin incision Complications: hemorrhage with EBL of 1600 mL during section Consults: None Hospital Course: Patient was admitted for induction of labor and was noted be vertex on initial exam. Patient eventually became complete and was noted to be in breech position. She was counseled on primary section agreed to the procedure. Consents are signed. Patient was taken back to the operating room and primary low transverse section through Pfannenstiel skin incision was performed. Please see operative report for full details. The case is complicated by hemorrhage of 1600 mL. There was also noted to be a placental cyst near the insertion of the cord. Placenta was sent for pathology. Postoperatively her hemoglobin fell to 8.4 and in the morning of postoperative day #1 was 7.3. She is overall doing well and asymptomatic from her blood loss. She was doing well in the morning of postoperative day number # 1 with her pain being controlled with oral medications, she was tolerating regular diet tissues emulating with minimal difficulty. On postoperative day # 2 she noted that she was passing flatus. She desired to be discharged home on postoperative day #2. She was given precautions given her anemia and she will start taking iron supplementation twice a day. She'll follow up with Dr. Maldonado in 2 weeks or earlier as needed. - Patient Instructions Diet: Regular Diet as Tolerated Activity: As Tolerated, No Lifting Over 25 Pounds, No Strenuous Activities Driving: Do Not Drive (While on narcotic medications) Showering/Bathing: May Shower, No Tub Bathing/Swimming (For 2 weeks) Wound/Incision Care: Keep Operative Site/Wound Site Clean and Dry Notify Provider of: Fever, Increased Pain, Swelling and Redness, Drainage, Nausea and/or Vomiting - Discharge Plan Prescriptions/Med Rec: Acetaminophen/oxyCODONE [Percocet 325-5 MG] 2 tab PO Q4H PRN #30 tablet PRN Reason: Pain Home Medications: Home Meds Vit W-Ca,Fe,FA(<1 mg) [ Vitamins] 1 tab PO DAILY 05/22/17 [ History] Acetaminophen/oxyCODONE [Percocet 325-5 MG] 2 tab PO Q4H PRN #30 tablet [Rx] Docusate Sodium [Colace] 100 mg PO Q12H PRN cap 05/24/17 [Rx] Ibuprofen [IJD: Ibuprofen] 800 mg PO Q8H tablet 05/24/17 [Rx] Lanolin [Lansinoh HPA] 1 applic TOP ASDIRECTED PRN tube 05/24/17 [Rx] Other Amb Orders: Breast Pump [[facility]ER] Location: Determined By Patient Patient Handouts: Mastitis, Awgb-ek-Hhcg, Vaginal Delivery, Care After, Challenges and Solutions Referrals: Tony Maldonado MD [Physician] - (Follow-up in 2 weeks for postop check.) - Discharge Summary/Plan Comment DC Time >30 min.: No - Patient Data Vitals - Most Recent: Last Vital Signs Temp 36.4 C 05/24/17 03:37 Pulse 99 05/24/17 03:37 Resp 17 05/24/17 03:37 BP 110/53 L 05/24/17 03:37 Pulse Ox 97 05/24/17 03:37 Weight - Most Recent: 98.43 kg I&O - Last 24 hours: Intake & Output 05/23/17 05/24/17 05/24/17 22:59 06:59 14:59 Intake Total 560 Balance 560 Med Orders - Current: Current Medications Diphenhydramine HCl (Benadryl) 25 mg IVPUSH Q6H PRN PRN Reason: Itching or Nausea Docusate Sodium (Colace) 100 mg PO Q12H PRN PRN Reason: Constipation Last Admin: 05/23/17 08:54 Dose: 100 mg Emollient Ointment (Lansinoh Hpa) 0 gm TOP ASDIRECTED PRN PRN Reason: Sore Nipples Ephedrine Sulfate (Ephedrine Sulfate) 5 mg IVPUSH SEECOMMENT PRN PRN Reason: Other Ibuprofen (Motrin) 800 mg PO Q8H TAE Last Admin: 05/24/17 09:07 Dose: 800 mg Morphine Sulfate (Morphine) 4 mg IVPUSH Q2H PRN PRN Reason: Pain (severe 7-10) Naloxone HCl (Narcan) 0.1 mg IVPUSH SEECOMMENT PRN PRN Reason: Respiratory Depression Ondansetron HCl (Zofran) 4 mg IV Q4H PRN PRN Reason: Nausea/Vomiting Oxycodone/Acetaminophen (Percocet 325-5 Mg) 2 tab PO Q4H PRN PRN Reason: Pain (moderate 4-6) Last Admin: 05/24/17 01:01 Dose: 1 tab Prenat Multivit/[place]/Iron/Folic Ac ( Plus Iron) 1 each PO DAILY [facility] Last Admin: 05/24/17 09:07 Dose: 1 each Simethicone (Simethicone) 80 mg PO PCBED [facility] Last Admin: 05/24/17 09:08 Dose: 80 mg Discontinued Medications Bupivacaine HCl (Marcaine 0.5%) Confirm Administered Dose 30 ml .ROUTE .STK-MED ONE Stop: 05/22/17 15:30 Last Admin: 05/22/17 15:50 Dose: 20 ml Citric Acid/Sodium Citrate (Bicitra Solution) Confirm Administered Dose 30 ml .ROUTE .STK-MED ONE Stop: 05/22/17 15:33 Last Admin: 05/22/17 19:32 Dose: Not Given Citric Acid/Sodium Citrate (Bicitra Solution) 30 ml PO ONETIME ONE Stop: 05/22/17 15:41 Last Admin: 05/22/17 15:45 Dose: 30 ml Dexamethasone (Dexamethasone) Confirm Administered Dose 4 mg .ROUTE .STK-MED ONE Stop: 05/22/17 16:11 Fentanyl (Sublimaze) Confirm Administered Dose 100 mcg .ROUTE .STK-MED ONE Stop: 05/22/17 16:10 Fentanyl (Sublimaze) Confirm Administered Dose 250 mcg .ROUTE .STK-MED ONE Stop: 05/22/17 16:12 Fentanyl (Sublimaze) 50 mcg IVPUSH Q5M PRN PRN Reason: Pain Fentanyl (Sublimaze) Confirm Administered Dose 100 mcg .ROUTE .STK-MED ONE Stop: 05/22/17 16:36 Gelatin (Gelfoam 12-7 Mm) Confirm Administered Dose 1 each TOP .STK-MED ONE Stop: 05/22/17 20:21 Last Admin: 05/22/17 16:35 Dose: 1 each Gelatin (Gelfoam Size 100) Confirm Administered Dose 1 each TOP .STK-MED ONE Stop: 05/22/17 20:21 Last Admin: 05/22/17 16:35 Dose: 1 each Hydromorphone HCl (Dilaudid) 0.5 mg IVPUSH Q15M PRN PRN Reason: severe pain Last Admin: 05/22/17 17:48 Dose: 0.5 mg Hydromorphone HCl (Dilaudid) Confirm Administered Dose 1 mg .ROUTE .STK-MED ONE Stop: 05/22/17 16:38 Ampicillin Sodium 2 gm/ Sodium (Chloride) 100 mls @ 200 mls/hr IV ONETIME ONE Stop: 05/22/17 07:03 Last Admin: 05/22/17 07:32 Dose: 200 mls/hr Ampicillin Sodium 1 gm/ Sodium (Chloride) 100 mls @ 200 mls/hr IV Q4H TAE Last Admin: 05/22/17 15:08 Dose: 200 mls/hr Lactated Ringer's (Ringers, Lactated) 1,000 mls @ 100 mls/hr IV ASDIRECTED TAE Last Admin: 05/22/17 07:49 Dose: 100 mls/hr Oxytocin/Lactated Ringer's (Pitocin In Lr 10 Units/1,000 Ml) 10 unit in 1,000 mls @ 12 mls/hr IV TITRATE TAE; 2 MUNITS/MIN PRN Reason: Protocol Last Titration: 05/22/17 10:35 Dose: 12 munits/min, 72 mls/hr Lactated Ringer's (Ringers, Lactated) Confirm Administered Dose 1,000 mls @ as directed .ROUTE .STK-MED ONE Stop: 05/22/17 16:22 Lactated Ringer's (Ringers, Lactated) Confirm Administered Dose 1,000 mls @ as directed .ROUTE .STK-MED ONE Stop: 05/22/17 16:55 Dextrose/Lactated Ringer's (Dextrose 5%-Lactated Ringers) 1,000 mls @ 125 mls/ hr IV ASDIRECTED TAE Stop: 05/23/17 02:19 Last Admin: 05/22/17 22:33 Dose: 125 mls/hr Influenza Virus Vaccine (Flulaval Quad [id number]) 60 mcg IM .ONCE ONE Stop: 05/24/17 08:59 Last Admin: 05/24/17 09:08 Dose: 60 mcg Ketorolac Tromethamine (Toradol) Confirm Administered Dose 30 mg .ROUTE .STK- MED ONE Stop: 05/22/17 16:10 Lidocaine HCl (Xylocaine 1%) 10 ml INJECT ONETIME ONE Stop: 05/22/17 06:35 Last Admin: 05/22/17 19:29 Dose: Not Given Meperidine HCl (Demerol) 12.5 mg IVPUSH ONETIME PRN PRN Reason: shivering Last Admin: 05/22/17 17:20 Dose: 12.5 mg Methylergonovine Maleate (Methergine) Confirm Administered Dose 0.2 mg .ROUTE .STK-MED ONE Stop: 05/22/17 16:00 Metoclopramide HCl (Reglan) Confirm Administered Dose 10 mg .ROUTE .STK-MED ONE Stop: 05/22/17 15:33 Last Admin: 05/22/17 19:31 Dose: Not Given Metoclopramide HCl (Reglan) 10 mg IVPUSH ONETIME ONE Stop: 05/22/17 15:41 Last Admin: 05/22/17 15:35 Dose: 10 mg Morphine Sulfate (Duramorph Pf) Confirm Administered Dose 10 mg .ROUTE .STK-MED ONE Stop: 05/22/17 15:47 Nalbuphine HCl (Nubain) 10 mg IVPUSH Q2H PRN PRN Reason: Pain (moderate 4-6) Ondansetron HCl (Zofran) 4 mg IVPUSH Q4H PRN PRN Reason: Nausea/Vomiting Ondansetron HCl (Zofran) Confirm Administered Dose 4 mg .ROUTE .STK-MED ONE Stop: 05/22/17 16:11 Ondansetron HCl (Zofran) 4 mg IVPUSH ONETIME PRN PRN Reason: Nausea/Vomiting Oxytocin (Pitocin) Confirm Administered Dose 20 unit .ROUTE .STK-MED ONE Stop: 05/22/17 16:09 Oxytocin (Pitocin) Confirm Administered Dose 10 unit .ROUTE .STK-MED ONE Stop: 05/22/17 17:54 Phenylephrine HCl (Maicol-Synephrine) Confirm Administered Dose 10 mg .ROUTE .STK- MED ONE Stop: 05/22/17 16:30 Propofol (Diprivan 20 Ml) Confirm Administered Dose 200 mg .ROUTE .STK-MED ONE Stop: 05/22/17 15:55 Sodium Chloride (Saline Flush) 10 ml FLUSH ASDIRECTED PRN PRN Reason: Keep Vein Open Succinylcholine Chloride (Quelicin) Confirm Administered Dose [address] -MED ONE Stop: 05/22/17 15:54 *Q Meaningful Use (DIS) - VTE *Q VTE Criteria *Q: - Stroke *Q Stroke Criteria *Q: - AMI *Q AMI Criteria *Q:
== END 2017-05-24 10:47 | disposition home or self-care (01) | DRG 540 ==
LOC: JD.OB 05-22 07:08 → OBSVTOIN 05-22 15:53 → JD.OB 05-22 15:53 → EDSTATUS 05-31 06:44
PROVIDERS: ADMIT Obstetrics & Gynecology; ATTEND Obstetrics & Gynecology
PROC: 10D00Z1 Extraction of Products of Conception, Low, Open Approach (ICD-10-PCS; principal; 2017-05-22)
PROC: 3E0234Z Introduction of Serum, Toxoid and Vaccine into Muscle, Percutaneous Approach (ICD-10-PCS; 2017-05-22)
DX: O43.193 Other malformation of placenta, third trimester (principal); Z3A.39 39 weeks gestation of pregnancy; Z37.0 Single live birth; O99.214 Obesity complicating childbirth; O99.824 Streptococcus B carrier state complicating childbirth; O32.1XX0 Maternal care for breech presentation, not applicable or unspecified; Z23 Encounter for immunization; O72.1 Other immediate postpartum hemorrhage; Z68.30 Body mass index [BMI] 30.0-30.9, adult
CPT/HCPCS: 01961; 36415; 36600; 59300; 80053; 82565; 82803; 85014; 85018; 85025; 85027; 86850; 86900; 86901; 90686; 94762; A9270-GY; J0290; J0330; J1100; J1170; J1885; J2175; J2210; J2270; J2370; J2405; J2590; J2704; J2765; J3010; J7030; J7042; J7120

== ENCOUNTER 2017-05-25 22:00 | Emergency (ER) | payer BC ==
[2017-05-25 22:15] VITALS: BP 147/83
--- NOTE | 2017-05-25 23:15 | EDM.PDOC ---
ED HPI GENERAL MEDICAL PROBLEM - General Chief Complaint: SOFT HAT BINDER Problem Stated Complaint: ABD PAIN Time Seen by Provider: 05/25/17 22:50 Source of Information: Reports: Patient, Family (), RN Notes Reviewed History Limitations: Reports: No Limitations - History of Present Illness INITIAL COMMENTS - FREE TEXT/NARRATIVE: The patient states that she underwent a section this past Monday, 05/22, per Dr. Maldonado, with Dr. Monterroso as patient services assistant. She was discharged home yesterday, 05/24/2017. She was still having vaginal bleeding. She states that she went to the bathroom tonight around 22:00, and felt something come out of her vagina, which is still hanging from her vagina. She does not have any vaginal pain, but reports some low back spasm. No prior similar symptoms. The patient is . The patient does not have a PCP. Her SOFT HAT BINDER is Dr. Maldonado. 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 Back Pain Score (Numeric/FACES): 8 - Related Data Allergies Allergy/AdvReac Type Severity Reaction Status Date / Time No Known Allergies Allergy Verified 07/08/16 10:36 Home Meds: Home Meds Vit W-Ca,Fe,FA(<1 mg) [ Vitamins] 1 tab PO DAILY 05/22/17 [ History] Acetaminophen/oxyCODONE [Percocet 325-5 MG] 2 tab PO Q4H PRN #30 tablet [Rx] Docusate Sodium [Colace] 100 mg PO Q12H PRN cap 05/24/17 [Rx] Ibuprofen [IJD: Ibuprofen] 800 mg PO Q8H tablet 05/24/17 [Rx] Lanolin [Lansinoh HPA] 1 applic TOP ASDIRECTED PRN tube 05/24/17 [Rx] Past Medical History HEENT History: Reports: Impaired Vision SOFT HAT BINDER History: Reports: , Prolapsed Uterus, Spontaneous : 11 Para: 6 Endocrine/Metabolic History: Reports: Obesity/BMI 30+ - Past Surgical History Other HEENT Surgeries/Procedures: Pt wears glasses Female Surgical History: Reports: Section (x 1, 05/22/2017), D&C (x 2) Endocrine Surgical History: Reports: None Social & Family History - Family History Family Medical History: Noncontributory - Tobacco Use Smoking Status *Q: Never Smoker Second Hand Smoke Exposure: No - Caffeine Use Caffeine Use: Reports: Coffee - Alcohol Use Alcohol Use History: Yes Days Per Week of Alcohol Use: 0 Alcohol Use Frequency: Socially - Recreational Drug Use Recreational Drug Use: No - Living Situation & Occupation Living situation: Reports: , with Spouse, with Family (6 kids) 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) ED ROS GENERAL - Review of Systems Review Of Systems: See Below Constitutional: Reports: No Symptoms HEENT: Reports: No Symptoms Respiratory: Reports: No Symptoms Cardiovascular: Reports: No Symptoms Endocrine: Reports: No Symptoms GI/Abdominal: Reports: No Symptoms : Reports: No Symptoms Musculoskeletal: Reports: No Symptoms Skin: Reports: No Symptoms Neurological: Reports: No Symptoms Psychiatric: Reports: No Symptoms Hematologic/Lymphatic: Reports: No Symptoms Immunologic: Reports: No Symptoms ED EXAM, GENERAL - Physical Exam Exam: See Below Exam Limited By: No Limitations General Appearance: Alert, WD/WN, No Apparent Distress Eye Exam: Bilateral Eye: Normal Inspection Ears: Normal External Exam, Hearing Grossly Normal Nose: Normal Inspection, No Blood Throat/Mouth: Normal Inspection, Normal Lips, Normal Voice, No Airway Compromise Head: Atraumatic, Normocephalic Neck: Normal Inspection, Full Range of Motion Respiratory/Chest: No Respiratory Distress, Lungs Clear, Normal Breath Sounds, No Accessory Muscle Use Cardiovascular: Normal Peripheral Pulses, Regular Rate, Rhythm, No Gallop, No JVD, No Murmur, No Rub Peripheral Pulses: 4+: Radial (L), Radial (R) GI/Abdominal: Normal Bowel Sounds, Soft, No Organomegaly, No Distention, No Abnormal Bruit, No Mass, Tender (Appropriate sarabjit-incisional tenderness) (Female) Exam: Normal External Exam, Other (There is a translucent sac of tissue membrane holding blood extruding from the patient's vagina. When elevated , the blood drained out, leaving only translucent membranes.) Rectal (Female) Exam: Hemorrhoids Back Exam: Normal Inspection, Full Range of Motion, NT Extremities: Normal Inspection, Normal Range of Motion, No Pedal Edema, Normal Capillary Refill Neurological: Alert, Oriented, Normal Cognition, No Motor/Sensory Deficits Psychiatric: Normal Affect Skin Exam: Warm, Dry, Intact, Normal Color, No Rash Course - Vital Signs Last Recorded V/S: Last Vital Signs Temp 36.8 C 10/19/17 22:12 Pulse 106 H 05/25/17 22:12 Resp 19 05/25/17 22:12 BP 147/83 H 05/25/17 22:12 Pulse Ox 100 05/25/17 22:12 - Re-Assessments/Exams Free Text/Narrative Re-Assessment/Exam: 05/25/17 23:30 Discussed with Joel at 23:12. He stated that the patient had a 9 cm cyst on her placenta, and feels that this is probably some remnant of that cyst. He is currently in [facility] [place] and recommended that I inserted a speculum, and attempts to remove the tissue with ring forceps. If I cannot remove the tissue, he recommended that I contact Dr. Monterroso. The above was performed, with removal of what appears to be placental membranes , without difficulty. No significant bleeding following the tissue removal. Departure - Departure Time of Disposition: 23:37 Disposition: Home, Self-Care 01 Condition: Good Clinical Impression: Retained placenta or membranes - Discharge Information Referrals: PCP,None [Primary Care Provider] - Tony Maldonado MD [Physician] - Forms: ED Department Discharge Additional Instructions: You were seen in the emergency room for extrusion of tissue from the vagina following a section. Placental membranes were successfully removed, with no significant cervical bleeding following the removal. We recommend you follow-up with Dr. Maldonado at the next available appointment. If any other problems, please do not hesitate to return to the ER.
== END 2017-05-25 23:45 | disposition home or self-care (01) ==
LOC: JD.ED 22:00
DX: O72.0 Third-stage hemorrhage (principal)
CPT/HCPCS: 99283

== ENCOUNTER 2021-04-01 16:33 | Day surgery (SDC) | payer BC ==
--- NOTE | 2021-04-01 16:55 | EDM.PDOC ---
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 today. She states she has been soaking a pad every 1/2 hour since that time. She feels very lightheaded and dizzy. Patient was at work when this occurred. 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 She is 15 para 5. She has had 9 previous spontaneous miscarriages. One was at 17 weeks gestation. There is no report that she has cervical incompetence. She states that she is gone through early miscarriages at home without D&C. She had a for delivery her last due to a large cyst unclear where this was but apparently was interfering with the ability to deliver per vagina. She is usually seen Dr. Maldonado for obstetrical care. She has not yet seen him during this . Last known menstrual period was felt to be around December 30. She feels that she is passing tissue per vagina as well as blood and blood clots. Last meal was approximately noon today. She has not had COVID-19 vaccination. Onset: Today, Sudden Onset Date: 04/01/21 Onset Time: 14:00 Duration: Hour(s):, Constant Location: Reports: Other (Very heavy bleeding per vagina bright red blood with clots and she believes some tissue.) Quality: Reports: Other (Very little abdominal cramping pain) Severity: Moderate (Very heavy bleeding per vagina she states soaking a pad per half hour x6) Worsens with: Reports: None Context: Denies: Activity, Exercise, Lifting, Sick Contact, Trauma, Other Associated Symptoms: Denies: No Other Symptoms, Confusion, Chest Pain, Cough, cough w sputum, Diaphoresis, Fever/Chills, Headaches, Loss of Appetite, Malaise, Shortness of Breath, Syncope Treatments GREEN BELT: Reports: Other (see below) (None.) - Related Data Allergies Allergy/AdvReac Type Severity Reaction Status Date / Time No Known Allergies Allergy Verified 07/08/16 10:36 Home Meds: Home Meds Vit Calc,Iron,Folic [ Vitamins] 1 tab PO DAILY 05/22/17 [History] Acetaminophen/oxyCODONE [Percocet 325-5 MG] 2 tab PO Q4H PRN #30 tablet 05/24/17 [Rx] Docusate Sodium [Colace] 100 mg PO Q12H PRN cap 05/24/17 [Rx] Ibuprofen [IJD: Ibuprofen] 800 mg PO Q8H tablet 05/24/17 [Rx] Lanolin [Lansinoh HPA] 1 applic TOP ASDIRECTED PRN tube 05/24/17 [Rx] Past Medical History - Past Health History Medical/Surgical History: Denies Medical/Surgical History HEENT History: Reports: Impaired Vision Cardiovascular History: Reports: None Respiratory History: Reports: None Gastrointestinal History: Reports: None COVER STITCH MACHINE OPERATOR History: Reports: (Last menstrual period was December 30, 2020 this would make her approximate 13 weeks gestation), Prolapsed Uterus, Spontaneous : 16 Para: 6 (9 miscarriages. Children age 18, 14, 12, 9, 6, 3 at home) LMP (Approximate): > 3 Months Other COVER STITCH MACHINE OPERATOR History: previous 18 week loss. Pt has an 8cm cyst on placents/umbillical cord. 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 Denies: Fever, Chills, Malaise, Weakness HEENT: Reports: No Symptoms Respiratory: Reports: No Symptoms Cardiovascular: Reports: No Symptoms Endocrine: Reports: No Symptoms GI/Abdominal: Reports: Abdominal Pain (Mild lower abdominal pressure discomfort but not cramping) : Reports: Other (Very heavy bleeding per vagina with clots and suspect tissue.) Musculoskeletal: Reports: No Symptoms Skin: Reports: No Symptoms Neurological: Reports: No Symptoms Psychiatric: Reports: No Symptoms Hematologic/Lymphatic: Reports: No Symptoms ED EXAM - Physical Exam Exam: See Below Exam Limited By: No Limitations General Appearance: Alert, WD/WN, Anxious, Moderate Distress, Other (Lightheaded dizzy. Vital signs show temperature of 36.1. Heart rate 115 and sinus respiratory 8 of 18 with O2 sats 100% room air. BP 110/64.) Eye Exam: Bilateral Eye: Normal Fundi (No blepharal pallor or scleral icterus.) Throat/Mouth: Normal Inspection, Normal Lips, Normal Teeth, Normal Oropharynx Head: Atraumatic, Normocephalic Neck: Normal Inspection, Supple, Non-Tender, Full Range of Motion. No: Lymphadenopathy (L), Lymphadenopathy (R) Respiratory/Chest: No Respiratory Distress, Lungs Clear, Normal Breath Sounds, No Accessory Muscle Use Cardiovascular: Normal Peripheral Pulses, No Edema, No Gallop, No Murmur, Tachycardia (Tachycardia at the bedside.) GI/Abdominal Exam: Normal Bowel Sounds, Soft, Non-Tender, No Organomegaly, No Distention, No Abnormal Bruit Back Exam: Normal Inspection, Full Range of Motion. No: CVA Tenderness (L), CVA Tenderness (R) Extremities: Normal Inspection, Normal Range of Motion, Non-Tender, No Pedal Edema Neurological: Alert, Oriented, CN II-XII Intact, Normal Cognition Psychiatric: Anxious Skin Exam: Warm, Dry, Intact, Pallor (Mildly pallid.) Course - Vital Signs Last Recorded V/S: Last Vital Signs Temp 36.1 C 04/01/21 16:44 Pulse 101 H 04/01/21 16:44 Resp 16 04/01/21 16:44 BP 118/84 04/01/21 16:44 Pulse Ox 100 04/01/21 16:44 - Orders/Labs/Meds Orders: Active Orders 24 hr Category Date Time Status Admission Status [Patient Status] [ADT] Routine ADT 04/01/21 18:45 Active Verify Patient Consent Obtain [RC] PER UNIT ROUTINE Care 04/01/21 18:50 Active Nothing Per Oral Diet [DIET] Diet 04/01/21 Dinner Active Sodium Chloride 0.9% [Normal Saline] 1,000 ml Med 04/01/21 17:00 Active IV ASDIRECTED ceFAZolin [Ancef] Med 04/01/21 19:01 Once 2 gm IM ONETIME ONE Schedule Procedure [COMM] Stat Oth 04/01/21 18:46 Ordered Schedule Procedure [COMM] Stat Oth 04/01/21 18:51 Ordered Medication Orders Cefazolin Sodium (Cefazolin 1 Gm Vial) 2 gm IM ONETIME ONE Stop: 04/01/21 19:02 Sodium Chloride (Normal Saline) 1,000 mls @ 999 mls/hr IV ASDIRECTED TAE Last Admin: 04/01/21 17:17 Dose: 999 mls/hr Documented by: AILEEN Labs: Laboratory Tests 04/01/21 04/01/21 04/01/21 Range/Units 16:53 16:53 16:53 WBC 7.00 (3.98-10.04) K/mm3 RBC 3.94 L (3.98-5.22) M/mm3 Hgb 10.6 L D (11.2-15.7) gm/dl Hct 32.2 L (34.1-44.9) % MCV 81.7 (79.4-94.8) fl MCH 26.9 (25.6-32.2) pg MCHC 32.9 (32.2-35.5) g/dl RDW Std Deviation 39.8 (36.4-46.3) fL Plt Count 272 (182-369) K/mm3 MPV 9.1 L (9.4-12.3) fl Neut % (Auto) 68.4 (34.0-71.1) % Lymph % (Auto) 21.7 (19.3-51.7) % [place] % (Auto) 7.1 (4.7-12.5) % Eos % (Auto) 2.6 (0.7-5.8) Baso % (Auto) 0.1 (0.1-1.2) % Neut # (Auto) 4.78 (1.56-6.13) K/mm3 Lymph # (Auto) 1.52 (1.18-3.74) K/mm3 [place] # (Auto) 0.50 H (0.24-0.36) K/mm3 Eos # (Auto) 0.18 (0.04-0.36) K/mm3 Baso # (Auto) 0.01 (0.01-0.08) K/mm3 Sodium 142 (136-145) mEq/L Potassium 3.5 (3.5-5.1) mEq/L Chloride 107 (98-107) mEq/L Carbon Dioxide 25 (21-32) mEq/L Anion Gap 13.5 (5-15) BUN 9 (7-18) mg/dL Creatinine 0.6 (0.55-1.02) mg/dL Est Cr Clr Drug Dosing 130.74 mL/min Estimated GFR (MDRD) > 60 (>60) mL/min BUN/Creatinine Ratio 15.0 (14-18) Glucose 116 H (70-99) mg/dL Calcium 8.3 L (8.5-10.1) mg/dL Total Bilirubin 0.3 (0.2-1.0) mg/dL AST 9 L (15-37) U/L ALT 19 (14-59) U/L Alkaline Phosphatase 42 L (46-116) U/L Total Protein 6.5 (6.4-8.2) g/dl Albumin 3.5 (3.4-5.0) g/dl Globulin 3.0 gm/dL Albumin/Globulin Ratio 1.2 (1-2) HCG, Qual Positive H (NEGATIVE) HCG, Quant 8921.0 mIU/mL SARS-CoV-2 RNA (INOCENCIA) (NEGATIVE) Blood Type Gel Antibody Screen 04/01/21 04/01/21 Range/Units 16:53 17:05 WBC (3.98-10.04) K/mm3 RBC (3.98-5.22) M/mm3 Hgb (11.2-15.7) gm/dl Hct (34.1-44.9) % MCV (79.4-94.8) fl MCH (25.6-32.2) pg MCHC (32.2-35.5) g/dl RDW Std Deviation (36.4-46.3) fL Plt Count (182-369) K/mm3 MPV (9.4-12.3) fl Neut % (Auto) (34.0-71.1) % Lymph % (Auto) (19.3-51.7) % [place] % (Auto) (4.7-12.5) % Eos % (Auto) (0.7-5.8) Baso % (Auto) (0.1-1.2) % Neut # (Auto) (1.56-6.13) K/mm3 Lymph # (Auto) (1.18-3.74) K/mm3 [place] # (Auto) (0.24-0.36) K/mm3 Eos # (Auto) (0.04-0.36) K/mm3 Baso # (Auto) (0.01-0.08) K/mm3 Sodium (136-145) mEq/L Potassium (3.5-5.1) mEq/L Chloride (98-107) mEq/L Carbon Dioxide (21-32) mEq/L Anion Gap (5-15) BUN (7-18) mg/dL Creatinine (0.55-1.02) mg/dL Est Cr Clr Drug Dosing mL/min Estimated GFR (MDRD) (>60) mL/min BUN/Creatinine Ratio (14-18) Glucose (70-99) mg/dL Calcium (8.5-10.1) mg/dL Total Bilirubin (0.2-1.0) mg/dL AST (15-37) U/L ALT (14-59) U/L Alkaline Phosphatase (46-116) U/L Total Protein (6.4-8.2) g/dl Albumin (3.4-5.0) g/dl Globulin gm/dL Albumin/Globulin Ratio (1-2) HCG, Qual (NEGATIVE) HCG, Quant mIU/mL SARS-CoV-2 RNA (INOCENCIA) Negative (NEGATIVE) Blood Type A POSITIVE Gel Antibody Screen Negative Meds: Medications Generic Name Dose Route Start Last Admin Trade Name Freq PRN Reason Stop Dose Admin Cefazolin Sodium 2 gm 04/01/21 19:01 Cefazolin 1 Gm Vial IM 04/01/21 19:02 ONETIME ONE Sodium Chloride 1,000 mls @ 999 mls/hr 04/01/21 17:00 04/01/21 17:17 Normal Saline IV 999 mls/hr ASDIRECTED TAE Administration Discontinued Medications Generic Name Dose Route Start Last Admin Trade Name Freq PRN Reason Stop Dose Admin Metoclopramide HCl 7.5 mg 04/01/21 17:03 04/01/21 18:05 Metoclopramide 10 Mg/2 Ml Sdv IVPUSH 04/01/21 17:04 7.5 mg ONETIME ONE Administration - Radiology Interpretation Free Text/Narrative:: 45-year-old female who is 15 para 5 presents to the ED with sudden onset of very heavy vaginal hemorrhage starting at 1400 hrs. today. She estimates she soaked a pad every 1/2 hour for the last 3 hours. Very little abdominal cramping pain. She estimates her last menstrual period was December 30, 2020. This would make her 13 weeks gestation. She has had miscarriages up to 18 weeks of . She has gone through all of these on her own other than the 18-week gestation which she had to come to the hospital for. Last delivery was by C- section due to some obstruction of the canal with a cyst which is understood by me. She has seen Dr. Maldonado in the past for obstetrical care. She has not yet seen him during this . Plan she will have IV normal saline at open. Reglan 7.5 mg IV in case she needs to go to the OR. Last meal was at noon today. Transvaginal ultrasound to be ordered. Covid screen ordered routine labs ordered including type and screen. - Re-Assessments/Exams Free Text/Narrative Re-Assessment/Exam: 04/01/21 18:12 White count is normal at 7.0 with auto differential showing 60% neutrophils. Hemoglobin is slightly low at 10.6 with hematocrit of 32.2. MCV is 81.7. Platelet count is 272,000. Sodium 142 with a potassium of 3.5. Chloride 107 the bicarb is 25. Anion gap is 13.5. BUN is 9 with a creatinine of 0.6 and a GFR greater than 60. Glucose is 116. Calcium is slightly low at 8.3. Liver function is normal. Total protein 6.5 with an albumin fraction of 3.5. Qualitative hCG is positive. Quantitative hCG is 8921.--This would correl ate to a 3 to 4-week gestation.. COVID-19 screen is negative. Have no formal reading on the transvaginal ultrasound. The smt technician commented that the uterus is empty of any structures. There is seems to be a strong decidual reaction. She appreciates a cystic lesion in the right adnexa. 04/01/21 18:20: Dr. Bhagat is here now to provide a consultation for this lady. She continues to flow fairly heavily per vagina. communication electronic technician identified a large amount of clots per vagina. The ultrasound report reveals uterus to show increased echoes most likely representing fairly large endometrial hematomas. There is a heterogenous area within the right adnexa which could represent clot although ectopic is more likely present. Right ovary is identified measuring 4.9 x 2.0 x 2.5 centimeters. Left ovary is not visualized. Uterine measurement length is 11.4 cm with AP height of 7.7 cm in transverse width of 9.7 cm. Impression is echogenic areas within the endometrial cavity presumably due to hematoma. 2 heterogenous area within the right adnexa which could represent hematoma but I believe ectopic is the most likely etiology. Small cyst within the right ovary measuring 2.7 cm appreciated 04/01/21 19:02 Dr. Miller indicates that due to the amount of persistent bleeding per vagina decision has been made to take the patient to the operating room for a D&C. It is felt to be highly unlikely to have an ectopic as the patient is very adamant about her dates and has no abdominal pain.Blood type is a positive gel antibody screen is negative Departure - Departure Time of Disposition: 19:03 Disposition: DC/Tfer to [facility] Access 66 Condition: Fair Clinical Impression: Spontaneous - Discharge Information *PRESCRIPTION DRUG MONITORING PROGRAM REVIEWED*: Not Applicable *COPY OF PRESCRIPTION DRUG MONITORING REPORT IN PATIENT KATHERINE: Not Applicable Sepsis Event Note (ED) - Evaluation Sepsis Screening Result: No Definite Risk - Focused Exam Vital Signs: Vital Signs Temp Pulse Resp BP Pulse Ox 04/01/21 16:44 36.1 C 101 H 16 118/84 100 - My Orders Last 24 Hours: My Active Orders 04/01/21 17:00 Sodium Chloride 0.9% [Normal Saline] 1,000 ml IV ASDIRECTED 04/01/21 18:45 Admission Status [Patient Status] [ADT] Routine 04/01/21 18:46 Schedule Procedure [COMM] Stat - Assessment/Plan Last 24 Hours: My Active Orders 04/01/21 17:00 Sodium Chloride 0.9% [Normal Saline] 1,000 ml IV ASDIRECTED 04/01/21 18:45 Admission Status [Patient Status] [ADT] Routine 04/01/21 18:46 Schedule Procedure [COMM] Stat
[2021-04-01] MEDS ORDERED: Sodium Chloride 0.9% 1,000 ML IV SCH (17:00)
[2021-04-01] MEDS ORDERED: Metoclopramide 10 MG/2 ML SDV IVPUSH ONE (17:03)
--- NOTE | 2021-04-01 18:19 | US ---
First trimester obstetrical ultrasound: Multiple real-time images were obtained transvaginally. Comparison: No prior obstetrical ultrasound is avilable for this . Uterus shows increased echoes most likely representing fairly large endometrial hematoma. There is a heterogeneous area within the right adnexa which could represent clot although ectopic is more likely present. Right ovary is identified measuring 4.9 x 2.0 x 2.5 cm. Right ovary shows a small cyst measuring 2.7 cm. Left ovary is not visualized. Uterine measurements: Length 11.4 cm, AP height 7.7 cm, transverse width 9.7 cm. Impression: 1. Echogenic area within the endometrial cavity presumably due to hematoma. 2. Heterogeneous area within the right adnexa which could represent hematoma but I believe ectopic is the most likely etiology. 3. Small cyst within the right ovary measuring 2.7 cm. Diagnostic code #5
--- NOTE | 2021-04-01 18:57 | PCM.HP.2 ---
H&P History of Present Illness - General Date of Service: 04/01/21 Admit Problem/Dx: Admission Diagnosis/Problem Admission Diagnosis/Problem Dilation and curettage Source of Information: Patient History Limitations: Reports: No Limitations - History of Present Illness Initial Comments - Free Text/Narative: Patient is a 45 y/o G 15 P6 woman who presents for episode of heavy bleeding in setting of . Patient states cycles regular. Certain of LMP of 12/30. First positive test 02/07. Based on this dating would be 13 1/7 wks gestation. Had not yet sought out care in this as she had a history of multiple SAB's in 1st trimester and one 2nd trimester loss at 17 weeks. Was having symptoms up until about 1 week ago. Was worried when these resolved that she was going to have a miscarriage. Today at 1400 was at work and had the sudden onset of bleeding where she states she soaked her clothing and her socks with blood and brownish water. [place] dizzy/lightheaded with this. Presented to ER for this reason. Has had minimal pain. 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: , 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 : 15 Para: 6 Endocrine/Metabolic History: Reports: Obesity/BMI 30+ - Past Surgical History Other HEENT Surgeries/Procedures: Pt wears glasses Female Surgical History: Reports: Section (x1), D&C (x2) Social & Family History - Family History Family Medical History: No Pertinent Family History - Tobacco Use Tobacco Use Status *Q: Never Tobacco User Second Hand Smoke Exposure: No - Caffeine Use Caffeine Use: Reports: Coffee - Alcohol Use Alcohol Use History: No - Recreational Drug Use Recreational Drug Use: No - Living Situation & Occupation Living situation: Reports: , with Spouse, with Family (6 kids) 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) H&P Review of Systems - Review of Systems: Review Of Systems: See Below General: Reports: Fatigue Pulmonary: Reports: No Symptoms Cardiovascular: Reports: No Symptoms Gastrointestinal: Reports: No Symptoms Genitourinary: Reports: Other (heavy bleeding ) Musculoskeletal: Reports: No Symptoms Psychiatric: Reports: No Symptoms Exam - Exam Exam: See Below - Vital Signs Vital Signs: Last Vital Signs Temp 36.1 C 04/01/21 16:44 Pulse 101 H 04/01/21 16:44 Resp 16 04/01/21 16:44 BP 118/84 04/01/21 16:44 Pulse Ox 100 04/01/21 16:44 Weight: 82.554 kg - Exam General: Alert, Oriented, Cooperative Lungs: Clear to Auscultation, Normal Respiratory Effort Cardiovascular: Regular Rate, Regular Rhythm GI/Abdominal Exam: Soft, Non-Tender. No: Guarding, Rebound (Female) Exam: Other (With placement of speculum at least 100 cc of clot/blot are noted in vagina. Extremely difficult to even see cervix given amout of blood noted in vaginal canal) Extremities: Normal Inspection - Patient Data Lab Results Last 24 hrs: Laboratory Results - last 24 hr 04/01/21 04/01/21 04/01/21 Range/Units 16:53 16:53 16:53 WBC 7.00 (3.98-10.04) K/mm3 RBC 3.94 L (3.98-5.22) M/mm3 Hgb 10.6 L D (11.2-15.7) gm/dl Hct 32.2 L (34.1-44.9) % MCV 81.7 (79.4-94.8) fl MCH 26.9 (25.6-32.2) pg MCHC 32.9 (32.2-35.5) g/dl RDW Std Deviation 39.8 (36.4-46.3) fL Plt Count 272 (182-369) K/mm3 MPV 9.1 L (9.4-12.3) fl Neut % (Auto) 68.4 (34.0-71.1) % Lymph % (Auto) 21.7 (19.3-51.7) % [place] % (Auto) 7.1 (4.7-12.5) % Eos % (Auto) 2.6 (0.7-5.8) Baso % (Auto) 0.1 (0.1-1.2) % Neut # (Auto) 4.78 (1.56-6.13) K/mm3 Lymph # (Auto) 1.52 (1.18-3.74) K/mm3 [place] # (Auto) 0.50 H (0.24-0.36) K/mm3 Eos # (Auto) 0.18 (0.04-0.36) K/mm3 Baso # (Auto) 0.01 (0.01-0.08) K/mm3 Sodium 142 (136-145) mEq/L Potassium 3.5 (3.5-5.1) mEq/L Chloride 107 (98-107) mEq/L Carbon Dioxide 25 (21-32) mEq/L Anion Gap 13.5 (5-15) BUN 9 (7-18) mg/dL Creatinine 0.6 (0.55-1.02) mg/dL Est Cr Clr Drug Dosing 130.74 mL/min Estimated GFR (MDRD) > 60 (>60) mL/min BUN/Creatinine Ratio 15.0 (14-18) Glucose 116 H (70-99) mg/dL Calcium 8.3 L (8.5-10.1) mg/dL Total Bilirubin 0.3 (0.2-1.0) mg/dL AST 9 L (15-37) U/L ALT 19 (14-59) U/L Alkaline Phosphatase 42 L (46-116) U/L Total Protein 6.5 (6.4-8.2) g/dl Albumin 3.5 (3.4-5.0) g/dl Globulin 3.0 gm/dL Albumin/Globulin Ratio 1.2 (1-2) HCG, Qual Positive H (NEGATIVE) HCG, Quant 8921.0 mIU/mL SARS-CoV-2 RNA (INOCENCIA) (NEGATIVE) Blood Type Gel Antibody Screen 04/01/21 04/01/21 Range/Units 16:53 17:05 WBC (3.98-10.04) K/mm3 RBC (3.98-5.22) M/mm3 Hgb (11.2-15.7) gm/dl Hct (34.1-44.9) % MCV (79.4-94.8) fl MCH (25.6-32.2) pg MCHC (32.2-35.5) g/dl RDW Std Deviation (36.4-46.3) fL Plt Count (182-369) K/mm3 MPV (9.4-12.3) fl Neut % (Auto) (34.0-71.1) % Lymph % (Auto) (19.3-51.7) % Snyder % (Auto) (4.7-12.5) % Eos % (Auto) (0.7-5.8) Baso % (Auto) (0.1-1.2) % Neut # (Auto) (1.56-6.13) K/mm3 Lymph # (Auto) (1.18-3.74) K/mm3 Snyder # (Auto) (0.24-0.36) K/mm3 Eos # (Auto) (0.04-0.36) K/mm3 Baso # (Auto) (0.01-0.08) K/mm3 Sodium (136-145) mEq/L Potassium (3.5-5.1) mEq/L Chloride (98-107) mEq/L Carbon Dioxide (21-32) mEq/L Anion Gap (5-15) BUN (7-18) mg/dL Creatinine (0.55-1.02) mg/dL Est Cr Clr Drug Dosing mL/min Estimated GFR (MDRD) (>60) mL/min BUN/Creatinine Ratio (14-18) Glucose (70-99) mg/dL Calcium (8.5-10.1) mg/dL Total Bilirubin (0.2-1.0) mg/dL AST (15-37) U/L ALT (14-59) U/L Alkaline Phosphatase (46-116) U/L Total Protein (6.4-8.2) g/dl Albumin (3.4-5.0) g/dl Globulin gm/dL Albumin/Globulin Ratio (1-2) HCG, Qual (NEGATIVE) HCG, Quant mIU/mL SARS-CoV-2 RNA (INOCENCIA) Negative (NEGATIVE) Blood Type A POSITIVE Gel Antibody Screen Negative Result Diagrams: 04/01/21 16:53 04/01/21 16:53 Sepsis Event Note - Evaluation Sepsis Screening Result: No Definite Risk - Focused Exam Vital Signs: Vital Signs Temp Pulse Resp BP Pulse Ox 04/01/21 16:44 36.1 C 101 H 16 118/84 100 - Problem List (1) Bleeding in early SNOMED Code(s): 22130182 ICD Code: O20.9 - HEMORRHAGE IN EARLY , UNSPECIFIED Status: Acute Current Visit: Yes Problem List Initiated/Reviewed/Updated: Yes Orders Last 24hrs: Active Orders 24 hr Category Date Time Status Admission Status [Patient Status] [ADT] Routine ADT 04/01/21 18:45 Active Verify Patient Consent Obtain [RC] PER UNIT ROUTINE Care 04/01/21 18:50 Ordered Nothing Per Oral Diet [DIET] Diet 04/01/21 Dinner Ordered Sodium Chloride 0.9% [Normal Saline] 1,000 ml Med 04/01/21 17:00 Active IV ASDIRECTED Schedule Procedure [COMM] Stat Oth 04/01/21 18:46 Ordered Schedule Procedure [COMM] Stat Oth 04/01/21 18:51 Ordered Medication Orders Sodium Chloride (Normal Saline) 1,000 mls @ 999 mls/hr IV ASDIRECTED [facility] Last Admin: 04/01/21 17:17 Dose: 999 mls/hr Documented by: AILEEN Assessment/Plan Comment:: Patient with US done which does not indicate retained POC, but does note possibility of ectopic. Reviewed with patient given her LMP, first positive test, and history/exam I think ectopic is much less likely than retained POC. Reviewed options and patient does agree to suction D&C. Given amount of blood loss does agree to transfusion if indicated. OR notified.
[2021-04-01] MEDS ORDERED: ceFAZolin 1 GM Vial IM ONE (19:01)
[2021-04-01] MEDS ORDERED: fentaNYL 100 MCG/2 ML SDV ONE ×2 (19:06→20:27)
[2021-04-01] MEDS ORDERED: Midazolam 1 MG/ML 2 ML SDV ONE (19:06)
[2021-04-01] MEDS ORDERED: Propofol 200 MG/20 ML SDV ONE (19:06)
[2021-04-01] MEDS ORDERED: Ondansetron 4 MG/2 ML SDV ONE (19:06)
[2021-04-01] MEDS ORDERED: Rocuronium 50 MG/5 ML Vial ONE (19:08)
[2021-04-01] MEDS ORDERED: ceFAZolin 1 GM Vial ONE (19:11)
[2021-04-01] MEDS ORDERED: Lidocaine 1% 4 ML ONE (19:11)
[2021-04-01] MEDS ORDERED: Methylergonovine 0.2 MG/1 ML Amp ONE (19:12)
[2021-04-01] MEDS ORDERED: Lactated Ringers 1,000 ML ONE ×3 (19:41→20:25)
[2021-04-01] MEDS ORDERED: Misoprostol 200 MCG Tab ONE (19:56)
[2021-04-01] MEDS ORDERED: Carboprost Tromethamine 250 MCG/1 ML Amp ONE (19:57)
[2021-04-01] MEDS ORDERED: Sodium Chloride 0.9% 1,000 ML ONE (20:40)
[2021-04-01] MEDS ORDERED: fentaNYL 100 MCG/2 ML SDV IVPUSH PRN (20:50)
--- NOTE | 2021-04-01 20:51 | PCM.POSTAN ---
POST ANESTHESIA ASSESSMENT - MENTAL STATUS Mental Status: Somnolent - VITAL SIGNS Vital Signs: Last Vital Signs Temp 36.7 C 04/01/21 20:49 Pulse 101 H 04/01/21 16:44 Resp 14 04/01/21 20:49 BP 101/57 L 04/01/21 20:49 Pulse Ox 93 L 04/01/21 20:49 - RESPIRATORY Respiratory Status: Respiratory Rate WNL, Airway Patent, O2 Saturation Stable - CARDIOVASCULAR CV Status: Pulse Rate WNL, Blood Pressure Stable - GASTROINTESTINAL GI Status: No Symptoms - PAIN Pain Score: 0 - POST OP HYDRATION Hydration Status: Adequate & Stable - OBSERVATIONS Free Text/Narrative:: no anesthesia complications noted
[2021-04-01] MEDS ORDERED: Acetaminophen 325 MG Tab PO PRN (20:52)
--- NOTE | 2021-04-01 20:53 | PCM.PREANE ---
Preanesthetic Assessment - Procedure Proposed Procedure: D & C - Anesthesia/Transfusion/Family Hx Anesthesia History: Prior Anesthesia Without Reaction Family History of Anesthesia Reaction: No Transfusion History: No Prior Transfusion(s) - Review of Systems General: Fatigue, Malaise Pulmonary: No Symptoms Cardiovascular: No Symptoms Gastrointestinal: No Symptoms Neurological: No Symptoms Other: Reports: Easy Bleeding, Anxiety - Physical Assessment NPO Status Date: 04/01/21 NPO Status Time: 12:00 Vital Signs: Last Vital Signs Temp 36.7 C 04/01/21 20:49 Pulse 101 H 04/01/21 16:44 Resp 14 04/01/21 20:49 BP 101/57 L 04/01/21 20:49 Pulse Ox 93 L 04/01/21 20:49 Height: 1.78 m Weight: 82.554 kg ASA Class: 2E Mental Status: Alert & Oriented x3 Airway Class: Mallampati = 1 Dentition: Reports: Normal Dentition Thyro-Mental Finger Breadths: 3 Mouth Opening Finger Breadths: 3 ROM/Head Extension: Full Lungs: Clear to Auscultation, Normal Respiratory Effort Cardiovascular: Regular Rate, Regular Rhythm, Tachycardia - Lab Values: Laboratory Last Values WBC 7.87 K/mm3 (3.98-10.04) 04/01/21 19:50 RBC 2.65 M/mm3 (3.98-5.22) L 04/01/21 19:50 Hgb 7.1 gm/dl (11.2-15.7) L* D 04/01/21 19:50 Hct 21.9 % (34.1-44.9) L 04/01/21 19:50 MCV 82.6 fl (79.4-94.8) 04/01/21 19:50 MCH 26.8 pg (25.6-32.2) 04/01/21 19:50 MCHC 32.4 g/dl (32.2-35.5) 04/01/21 19:50 RDW Std Deviation 39.1 fL (36.4-46.3) 04/01/21 19:50 Plt Count 249 K/mm3 (182-369) 04/01/21 19:50 MPV 9.5 fl (9.4-12.3) 04/01/21 19:50 Neut % (Auto) 79.0 % (34.0-71.1) H 04/01/21 19:50 Lymph % (Auto) 15.4 % (19.3-51.7) L 04/01/21 19:50 [place] % (Auto) 4.4 % (4.7-12.5) L 04/01/21 19:50 Eos % (Auto) 0.8 (0.7-5.8) 04/01/21 19:50 Baso % (Auto) 0.3 % (0.1-1.2) 04/01/21 19:50 Neut # (Auto) 6.22 K/mm3 (1.56-6.13) H 04/01/21 19:50 Lymph # (Auto) 1.21 K/mm3 (1.18-3.74) 04/01/21 19:50 [place] # (Auto) 0.35 K/mm3 (0.24-0.36) 04/01/21 19:50 Eos # (Auto) 0.06 K/mm3 (0.04-0.36) 04/01/21 19:50 Baso # (Auto) 0.02 K/mm3 (0.01-0.08) 04/01/21 19:50 PT 12.1 SECONDS (9.7-12.0) H 04/01/21 19:50 INR 1.13 04/01/21 19:50 APTT 30.2 SECONDS (21.7-31.4) 04/01/21 19:50 Fibrinogen 150 mg/dL (187-446) L* 04/01/21 19:50 Sodium 142 mEq/L (136-145) 04/01/21 16:53 Potassium 3.5 mEq/L (3.5-5.1) 04/01/21 16:53 Chloride 107 mEq/L (98-107) 04/01/21 16:53 Carbon Dioxide 25 mEq/L (21-32) 04/01/21 16:53 Anion Gap 13.5 (5-15) 04/01/21 16:53 BUN 9 mg/dL (7-18) 04/01/21 16:53 Creatinine 0.6 mg/dL (0.55-1.02) 04/01/21 16:53 Est Cr Clr Drug Dosing 130.74 mL/min 04/01/21 16:53 Estimated GFR (MDRD) > 60 mL/min (>60) 04/01/21 16:53 BUN/Creatinine Ratio 15.0 (14-18) 04/01/21 16:53 Glucose 116 mg/dL (70-99) H 04/01/21 16:53 Calcium 8.3 mg/dL (8.5-10.1) L 04/01/21 16:53 Total Bilirubin 0.3 mg/dL (0.2-1.0) 04/01/21 16:53 AST 9 U/L (15-37) L 04/01/21 16:53 ALT 19 U/L (14-59) 04/01/21 16:53 Alkaline Phosphatase 42 U/L (46-116) L 04/01/21 16:53 Total Protein 6.5 g/dl (6.4-8.2) 04/01/21 16:53 Albumin 3.5 g/dl (3.4-5.0) 04/01/21 16:53 Globulin 3.0 gm/dL 04/01/21 16:53 Albumin/Globulin Ratio 1.2 (1-2) 04/01/21 16:53 HCG, Qual Positive (NEGATIVE) H 04/01/21 16:53 HCG, Quant 8921.0 mIU/mL 04/01/21 16:53 SARS-CoV-2 RNA (INOCENCIA) Negative (NEGATIVE) 04/01/21 17:05 Blood Type A POSITIVE 04/01/21 16:53 Gel Antibody Screen Negative 04/01/21 16:53 Crossmatch See Detail 04/01/21 16:53 - Allergies Allergies/Adverse Reactions: Allergies Allergy/AdvReac Type Severity Reaction Status Date / Time No Known Allergies Allergy Verified 04/01/21 19:43 - Blood Blood Available: Yes Product(s) Available: PRBC - Anesthesia Plan Pre-Op Medication Ordered: None - Acknowledgements Anesthesia Type Planned: General Anesthesia Pt an Appropriate Candidate for the Planned Anesthesia: Yes Alternatives and Risks of Anesthesia Discussed w Pt/Guardian: Yes Pt/Guardian Understands and Agrees with Anesthesia Plan: Yes PreAnesthesia Questionnaire - Past Health History Medical/Surgical History: Denies Medical/Surgical History HEENT History: Reports: Impaired Vision Cardiovascular History: Reports: None Respiratory History: Reports: None Gastrointestinal History: Reports: None 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 Pt has an 8cm cyst on placents/umbillical cord. Endocrine/Metabolic History: Reports: Obesity/BMI 30+ Oncologic (Cancer) History: Reports: None - Past Surgical History Other HEENT Surgeries/Procedures: Pt wears glasses Female Surgical History: Reports: Section (x1), D&C (x2) - SUBSTANCE USE Tobacco Use Status *Q: Never Tobacco User Second Hand Smoke Exposure: No Recreational Drug Use History: No - HOME MEDS Home Medications: Home Meds Vit Calc,Iron,Folic [ Vitamins] 1 tab PO DAILY 05/22/17 [History] Docusate Sodium [Colace] 100 mg PO Q12H PRN cap 05/24/17 [Rx] Ibuprofen [IJD: Ibuprofen] 800 mg PO Q8H tablet 05/24/17 [Rx] - CURRENT (IN HOUSE) MEDS Current Meds: Current Medications Sodium Chloride (Normal Saline) 1,000 mls @ 999 mls/hr IV [facility]RECTED [facility] Last Admin: 04/01/21 17:17 Dose: 999 mls/hr Documented by: Discontinued Medications Carboprost Tromethamine (Carboprost Tromethamine 250 Mcg/1 Ml Amp) Confirm Administered Dose 250 mcg .ROUTE .STK-MED ONE Stop: 04/01/21 19:58 Cefazolin Sodium (Cefazolin 1 Gm Vial) 2 gm IM ONETIME ONE Stop: 04/01/21 19:02 Cefazolin Sodium (Cefazolin 1 Gm Vial) Confirm Administered Dose 2 gm .ROUTE .STK-MED ONE Stop: 04/01/21 19:12 Fentanyl (Fentanyl 100 Mcg/2 Ml Sdv) Confirm Administered Dose 100 mcg .ROUTE . STK-MED ONE Stop: 04/01/21 19:07 Fentanyl (Fentanyl 100 Mcg/2 Ml Sdv) Confirm Administered Dose 100 mcg .ROUTE .STK-MED ONE Stop: 04/01/21 20:28 Lidocaine HCl (Xylocaine-Mpf 1%) Confirm Administered Dose 4 mls @ as directed .ROUTE .STK-MED ONE Stop: 04/01/21 19:12 Lactated Ringer's (Ringers, Lactated) Confirm Administered Dose 1,000 mls @ as directed .ROUTE .STK-MED ONE Stop: 04/01/21 19:42 Lactated Ringer's (Ringers, Lactated) Confirm Administered Dose 1,000 mls @ as directed .ROUTE .STK-MED ONE Stop: 04/01/21 19:43 Lactated Ringer's (Ringers, Lactated) Confirm Administered Dose 1,000 mls @ as directed .ROUTE .STK-MED ONE Stop: 04/01/21 20:26 Sodium Chloride (Normal Saline) Confirm Administered Dose 1,000 mls @ as directed .ROUTE .STK-MED ONE Stop: 04/01/21 20:41 Methylergonovine Maleate (Methylergonovine 0.2 Mg/1 Ml Amp) Confirm Administered Dose 0.2 mg .ROUTE .STK-MED ONE Stop: 04/01/21 19:13 Metoclopramide HCl (Metoclopramide 10 Mg/2 Ml Sdv) 7.5 mg IVPUSH ONETIME ONE Stop: 04/01/21 17:04 Last Admin: 04/01/21 18:05 Dose: 7.5 mg Documented by: Midazolam HCl (Midazolam 1 Mg/Ml 2 Ml Sdv) Confirm Administered Dose 2 mg .ROUTE .STK-MED ONE Stop: 04/01/21 19:07 Miscellaneous Medication (Phenylephrine Hcl In 0.9% Nacl 1 Mg/10 Ml Syringe) Confirm Administered Dose 1 mg .ROUTE .STK-MED ONE Stop: 04/01/21 19:37 Miscellaneous Medication (Phenylephrine Hcl In 0.9% Nacl 1 Mg/10 Ml Syringe) Confirm Administered Dose 1 mg .ROUTE .STK-MED ONE Stop: 04/01/21 20:09 Misoprostol (Misoprostol 200 Mcg Tab) Confirm Administered Dose 1,000 mcg .ROUTE .STK-MED ONE Stop: 04/01/21 19:57 Ondansetron HCl (Ondansetron 4 Mg/2 Ml Sdv) Confirm Administered Dose 4 mg .ROUTE .STK-MED ONE Stop: 04/01/21 19:07 Propofol (Propofol 200 Mg/20 Ml Sdv) Confirm Administered Dose 200 mg .ROUTE .STK-MED ONE Stop: 04/01/21 19:07 Rocuronium Hulbert (Rocuronium 50 Mg/5 Ml Vial) Confirm Administered Dose 50 mg .ROUTE .STK-MED ONE Stop: 04/01/21 19:09 Tranexamic Acid (Tranexamic Acid 1,000 Mg/10 Ml Amp) Confirm Administered Dose 1,000 mg .ROUTE .[facility] ONE Stop: 04/01/21 19:13
--- NOTE | 2021-04-01 20:57 | PCM.OPNOTE ---
- General Post-Op/Procedure Note Date of Surgery/Procedure: 04/01/21 Operative Procedure(s): Suction dilation and curettage Findings: Patient with uterus size about 10 week gestation. Large, parous cervix. Pre Op Diagnosis: Incomplete miscarrage. Hemorrhage Post-Op Diagnosis: Same Anesthesia Technique: General ET Tube Primary Surgeon: Renée Bhagat Anesthesia Provider: Db Doss Pathology: Products of conception sent for evaluation Fluid Replacement, Intraop: 3,000 Output, Urine Amount: 75 EBL in mLs: 800 Complications: None Condition: Good Free Text/Narrative:: The risks, benefits, indications, potential complications, and alternatives were explained to the patient and informed consent obtained. The patient was brought to the OR where anesthesia was induced without difficulty. She was placed in the dorsal lithotomy position and prepped and draped in the usual sterile fashion. With prep large amount of blood clot released. A bi-valve speculum was placed in the vagina and the cervix was then visualized with a large amount of clot and tissue noted within os. This was grasped with a forceps and with gentle traction placental tissue able to be taken out essentially intact. Immediately after this large amount of bleeding noted. Patient given 1 gram tranexamic acid. An Allis clamp was was placed on the anterior lip of the cervix. Next the cervix was sequentially dilated to a #33 dilator. A size 9-mm cannula was then inserted into the uterus up to the level of the fundus. Next an electric vacuum aspiration was performed by slowly rotating the cannula and performing a gentle in and out motion. Return of blood/tissues was noted. Continued light bleeding noted and so patient given 0.2 mg of IM Methergine. Uterine massage done. Still with continued bleeding and so given 250 mcg of IM Hemabate and 1,000 mcg of rectal Cytotec. Additional pass with cannula done under ultrasound guidance with just blood returning. Ultrasound demonstrated a thin uterine stripe. Uterine bleeding did seem improved at this point, but bleeding noted from area of posterior cervix. Several running sutures of 2-0 Vicryl placed on this area also with small amount of Edgar Seal. Hemostasis finally noted. At about mid-point of case CBC was drawn with Hb returning at 7.1. 1 unit of PRBC ordered to start which was begun in PACU.
[2021-04-01] MEDS: Sodium Chloride 0.9% 1,000 ML IV SCH (22:30)
[2021-04-01] MEDS: Methylergonovine 0.2 MG/1 ML Amp IM SCH (23:45)
[2021-04-02] MEDS: Sodium Chloride 0.9% 1,000 ML IV SCH (00:48)
[2021-04-02] MEDS: Methylergonovine 0.2 MG/1 ML Amp IM SCH ×2 (03:47→07:47)
--- NOTE | 2021-04-02 07:29 | PCM.SURGPN ---
- General Info Date of Service: 04/02/21 POD#: 1 Functional Status: Reports: Pain Controlled, Ambulating, Urinating - Review of Systems General: Reports: No Symptoms Pulmonary: Reports: No Symptoms Cardiovascular: Reports: No Symptoms Gastrointestinal: Reports: Diarrhea Genitourinary: Reports: No Symptoms Musculoskeletal: Reports: No Symptoms - Patient Data Vitals - Most Recent: Last Vital Signs Temp 37.5 C 04/02/21 03:51 Pulse 91 04/02/21 06:01 Resp 14 04/02/21 03:51 BP 103/53 L 04/02/21 06:01 Pulse Ox 98 04/02/21 06:01 Weight - Most Recent: 82.554 kg I&O - Last 24 Hours: Intake & Output 04/01/21 04/02/21 04/02/21 22:59 06:59 14:59 Intake Total 3480 360 Output Total 150 410 Balance 3330 -50 Lab Results Last 24 Hrs: Laboratory Results - last 24 hr 04/01/21 04/01/21 04/01/21 Range/Units 16:53 16:53 16:53 WBC 7.00 (3.98-10.04) K/mm3 RBC 3.94 L (3.98-5.22) M/mm3 Hgb 10.6 L D (11.2-15.7) gm/dl Hct 32.2 L (34.1-44.9) % MCV 81.7 (79.4-94.8) fl MCH 26.9 (25.6-32.2) pg MCHC 32.9 (32.2-35.5) g/dl RDW Std Deviation 39.8 (36.4-46.3) fL Plt Count 272 (182-369) K/mm3 MPV 9.1 L (9.4-12.3) fl Neut % (Auto) 68.4 (34.0-71.1) % Lymph % (Auto) 21.7 (19.3-51.7) % [place] % (Auto) 7.1 (4.7-12.5) % Eos % (Auto) 2.6 (0.7-5.8) Baso % (Auto) 0.1 (0.1-1.2) % Neut # (Auto) 4.78 (1.56-6.13) K/mm3 Lymph # (Auto) 1.52 (1.18-3.74) K/mm3 [place] # (Auto) 0.50 H (0.24-0.36) K/mm3 Eos # (Auto) 0.18 (0.04-0.36) K/mm3 Baso # (Auto) 0.01 (0.01-0.08) K/mm3 PT (9.7-12.0) SECONDS INR APTT (21.7-31.4) SECONDS Fibrinogen (187-446) mg/dL Sodium 142 (136-145) mEq/L Potassium 3.5 (3.5-5.1) mEq/L Chloride 107 (98-107) mEq/L Carbon Dioxide 25 (21-32) mEq/L Anion Gap 13.5 (5-15) BUN 9 (7-18) mg/dL Creatinine 0.6 (0.55-1.02) mg/dL Est Cr Clr Drug Dosing 130.74 mL/min Estimated GFR (MDRD) > 60 (>60) mL/min BUN/Creatinine Ratio 15.0 (14-18) Glucose 116 H (70-99) mg/dL Calcium 8.3 L (8.5-10.1) mg/dL Total Bilirubin 0.3 (0.2-1.0) mg/dL AST 9 L (15-37) U/L ALT 19 (14-59) U/L Alkaline Phosphatase 42 L (46-116) U/L Total Protein 6.5 (6.4-8.2) g/dl Albumin 3.5 (3.4-5.0) g/dl Globulin 3.0 gm/dL Albumin/Globulin Ratio 1.2 (1-2) HCG, Qual Positive H (NEGATIVE) HCG, Quant 8921.0 mIU/mL SARS-CoV-2 RNA (INOCENCIA) (NEGATIVE) Blood Type Gel Antibody Screen Crossmatch 04/01/21 04/01/21 04/01/21 Range/Units 16:53 16:53 17:05 WBC (3.98-10.04) K/mm3 RBC (3.98-5.22) M/mm3 Hgb (11.2-15.7) gm/dl Hct (34.1-44.9) % MCV (79.4-94.8) fl MCH (25.6-32.2) pg MCHC (32.2-35.5) g/dl RDW Std Deviation (36.4-46.3) fL Plt Count (182-369) K/mm3 MPV (9.4-12.3) fl Neut % (Auto) (34.0-71.1) % Lymph % (Auto) (19.3-51.7) % [place] % (Auto) (4.7-12.5) % Eos % (Auto) (0.7-5.8) Baso % (Auto) (0.1-1.2) % Neut # (Auto) (1.56-6.13) K/mm3 Lymph # (Auto) (1.18-3.74) K/mm3 [place] # (Auto) (0.24-0.36) K/mm3 Eos # (Auto) (0.04-0.36) K/mm3 Baso # (Auto) (0.01-0.08) K/mm3 PT (9.7-12.0) SECONDS INR APTT (21.7-31.4) SECONDS Fibrinogen (187-446) mg/dL Sodium (136-145) mEq/L Potassium (3.5-5.1) mEq/L Chloride (98-107) mEq/L Carbon Dioxide (21-32) mEq/L Anion Gap (5-15) BUN (7-18) mg/dL Creatinine (0.55-1.02) mg/dL Est Cr Clr Drug Dosing mL/min Estimated GFR (MDRD) (>60) mL/min BUN/Creatinine Ratio (14-18) Glucose (70-99) mg/dL Calcium (8.5-10.1) mg/dL Total Bilirubin (0.2-1.0) mg/dL AST (15-37) U/L ALT (14-59) U/L Alkaline Phosphatase (46-116) U/L Total Protein (6.4-8.2) g/dl Albumin (3.4-5.0) g/dl Globulin gm/dL Albumin/Globulin Ratio (1-2) HCG, Qual (NEGATIVE) HCG, Quant mIU/mL SARS-CoV-2 RNA (INOCENCIA) Negative (NEGATIVE) Blood Type A POSITIVE Gel Antibody Screen Negative Crossmatch See Detail 0804/01/21 04/02/21 Range/Units 19:50 19:50 05:15 WBC 7.87 (3.98-10.04) K/mm3 RBC 2.65 L (3.98-5.22) M/mm3 Hgb 7.1 L* D (11.2-15.7) gm/dl Hct 21.9 L (34.1-44.9) % MCV 82.6 (79.4-94.8) fl MCH 26.8 (25.6-32.2) pg MCHC 32.4 (32.2-35.5) g/dl RDW Std Deviation 39.1 (36.4-46.3) fL Plt Count 249 (182-369) K/mm3 MPV 9.5 (9.4-12.3) fl Neut % (Auto) 79.0 H (34.0-71.1) % Lymph % (Auto) 15.4 L (19.3-51.7) % [place] % (Auto) 4.4 L (4.7-12.5) % Eos % (Auto) 0.8 (0.7-5.8) Baso % (Auto) 0.3 (0.1-1.2) % Neut # (Auto) 6.22 H (1.56-6.13) K/mm3 Lymph # (Auto) 1.21 (1.18-3.74) K/mm3 [place] # (Auto) 0.35 (0.24-0.36) K/mm3 Eos # (Auto) 0.06 (0.04-0.36) K/mm3 Baso # (Auto) 0.02 (0.01-0.08) K/mm3 PT 12.1 H (9.7-12.0) SECONDS INR 1.13 APTT 30.2 28.9 (21.7-31.4) SECONDS Fibrinogen 150 L* (187-446) mg/dL Sodium (136-145) mEq/L Potassium (3.5-5.1) mEq/L Chloride (98-107) mEq/L Carbon Dioxide (21-32) mEq/L Anion Gap (5-15) BUN (7-18) mg/dL Creatinine (0.55-1.02) mg/dL Est Cr Clr Drug Dosing mL/min Estimated GFR (MDRD) (>60) mL/min BUN/Creatinine Ratio (14-18) Glucose (70-99) mg/dL Calcium (8.5-10.1) mg/dL Total Bilirubin (0.2-1.0) mg/dL AST (15-37) U/L ALT (14-59) U/L Alkaline Phosphatase (46-116) U/L Total Protein (6.4-8.2) g/dl Albumin (3.4-5.0) g/dl Globulin gm/dL Albumin/Globulin Ratio (1-2) HCG, Qual (NEGATIVE) HCG, Quant mIU/mL SARS-CoV-2 RNA (INOCENCIA) (NEGATIVE) Blood Type Gel Antibody Screen Crossmatch 04/02/21 04/02/21 Range/Units 05:15 05:15 WBC 7.98 (3.98-10.04) K/mm3 RBC 3.11 L (3.98-5.22) M/mm3 Hgb 8.6 L D (11.2-15.7) gm/dl Hct 26.0 L (34.1-44.9) % MCV 83.6 (79.4-94.8) fl MCH 27.7 (25.6-32.2) pg MCHC 33.1 (32.2-35.5) g/dl RDW Std Deviation 41.0 (36.4-46.3) fL Plt Count 191 (182-369) K/mm3 MPV 9.4 (9.4-12.3) fl Neut % (Auto) (34.0-71.1) % Lymph % (Auto) (19.3-51.7) % [place] % (Auto) (4.7-12.5) % Eos % (Auto) (0.7-5.8) Baso % (Auto) (0.1-1.2) % Neut # (Auto) (1.56-6.13) K/mm3 Lymph # (Auto) (1.18-3.74) K/mm3 [place] # (Auto) (0.24-0.36) K/mm3 Eos # (Auto) (0.04-0.36) K/mm3 Baso # (Auto) (0.01-0.08) K/mm3 PT 11.9 (9.7-12.0) SECONDS INR 1.11 APTT (21.7-31.4) SECONDS Fibrinogen 152 L* (187-446) mg/dL Sodium (136-145) mEq/L Potassium (3.5-5.1) mEq/L Chloride (98-107) mEq/L Carbon Dioxide (21-32) mEq/L Anion Gap (5-15) BUN (7-18) mg/dL Creatinine (0.55-1.02) mg/dL Est Cr Clr Drug Dosing mL/min Estimated GFR (MDRD) (>60) mL/min BUN/Creatinine Ratio (14-18) Glucose (70-99) mg/dL Calcium (8.5-10.1) mg/dL Total Bilirubin (0.2-1.0) mg/dL AST (15-37) U/L ALT (14-59) U/L Alkaline Phosphatase (46-116) U/L Total Protein (6.4-8.2) g/dl Albumin (3.4-5.0) g/dl Globulin gm/dL Albumin/Globulin Ratio (1-2) HCG, Qual (NEGATIVE) HCG, Quant mIU/mL SARS-CoV-2 RNA (INOCENCIA) (NEGATIVE) Blood Type Gel Antibody Screen Crossmatch Med Orders - Current: Current Medications Acetaminophen (Acetaminophen 325 Mg Tab) 650 mg PO Q6H PRN PRN Reason: Pain Fentanyl (Fentanyl 100 Mcg/2 Ml Sdv) 50 mcg IVPUSH Q5M PRN PRN Reason: Pain Sodium Chloride (Normal Saline) 1,000 mls @ 999 mls/hr IV ASDIRECTED [facility] Last Admin: 04/01/21 17:17 Dose: 999 mls/hr Documented by: Sodium Chloride (Normal Saline) 1,000 mls @ 125 mls/hr IV ASDIRECTED [facility] Last Admin: 04/02/21 00:48 Dose: 125 mls/hr Documented by: Methylergonovine Maleate (Methylergonovine 0.2 Mg/1 Ml Amp) 0.2 mg IM Q4H [facility] Stop: 04/02/21 07:46 Last Admin: 04/02/21 03:47 Dose: 0.2 mg Documented by: Discontinued Medications Carboprost Tromethamine (Carboprost Tromethamine 250 Mcg/1 Ml Amp) Confirm Administered Dose 250 mcg .ROUTE .[facility] Stop: 04/01/21 19:58 Last Admin: 04/01/21 20:11 Dose: 250 mcg Documented by: Cefazolin Sodium (Cefazolin 1 Gm Vial) 2 gm IM ONETIME ONE Stop: 04/01/21 19:02 Last Admin: 04/01/21 22:52 Dose: Not Given Documented by: Cefazolin Sodium (Cefazolin 1 Gm Vial) Confirm Administered Dose 2 gm .ROUTE .STK-MED ONE Stop: 04/01/21 19:12 Fentanyl (Fentanyl 100 Mcg/2 Ml Sdv) Confirm Administered Dose 100 mcg .ROUTE .STK-MED ONE Stop: 04/01/21 19:07 Fentanyl (Fentanyl 100 Mcg/2 Ml Sdv) Confirm Administered Dose 100 mcg .ROUTE .STK-MED ONE Stop: 04/01/21 20:28 Lidocaine HCl (Xylocaine-Mpf 1%) Confirm Administered Dose 4 mls @ as directed .ROUTE .STK-MED ONE Stop: 04/01/21 19:12 Lactated Ringer's (Ringers, Lactated) Confirm Administered Dose 1,000 mls @ as directed .ROUTE .STK-MED ONE Stop: 04/01/21 19:42 Lactated Ringer's (Ringers, Lactated) Confirm Administered Dose 1,000 mls @ as directed .ROUTE .STK-MED ONE Stop: 04/01/21 19:43 Lactated Ringer's (Ringers, Lactated) Confirm Administered Dose 1,000 mls @ as directed .ROUTE .STK-MED ONE Stop: 04/01/21 20:26 Sodium Chloride (Normal Saline) Confirm Administered Dose 1,000 mls @ as directed .ROUTE .STK-MED ONE Stop: 04/01/21 20:41 Methylergonovine Maleate (Methylergonovine 0.2 Mg/1 Ml Amp) Confirm Administered Dose 0.2 mg .ROUTE .STK-MED ONE Stop: 04/01/21 19:13 Last Admin: 04/01/21 19:55 Dose: 0.2 mg Documented by: Metoclopramide HCl (Metoclopramide 10 Mg/2 Ml Sdv) 7.5 mg IVPUSH ONETIME ONE Stop: 04/01/21 17:04 Last Admin: 04/01/21 18:05 Dose: 7.5 mg Documented by: Midazolam HCl (Midazolam 1 Mg/Ml 2 Ml Sdv) Confirm Administered Dose 2 mg .ROUTE .STK-MED ONE Stop: 04/01/21 19:07 Miscellaneous Medication (Phenylephrine Hcl In 0.9% Nacl 1 Mg/10 Ml Syringe) Confirm Administered Dose 1 mg .ROUTE .STK-MED ONE Stop: 04/01/21 19:37 Miscellaneous Medication (Phenylephrine Hcl In 0.9% Nacl 1 Mg/10 Ml Syringe) Confirm Administered Dose 1 mg .ROUTE .STK-MED ONE Stop: 04/01/21 20:09 Misoprostol (Misoprostol 200 Mcg Tab) Confirm Administered Dose 1,000 mcg .ROUTE .STK-MED ONE Stop: 04/01/21 19:57 Last Admin: 04/01/21 20:18 Dose: 1,000 mcg Documented by: Ondansetron HCl (Ondansetron 4 Mg/2 Ml Sdv) Confirm Administered Dose 4 mg .ROUTE .STK-MED ONE Stop: 04/01/21 19:07 Propofol (Propofol 200 Mg/20 Ml Sdv) Confirm Administered Dose 200 mg .ROUTE .STK-MED ONE Stop: 04/01/21 19:07 Rocuronium [place] (Rocuronium 50 Mg/5 Ml Vial) Confirm Administered Dose 50 mg .ROUTE .STK-MED ONE Stop: 04/01/21 19:09 Tranexamic Acid (Tranexamic Acid 1,000 Mg/10 Ml Amp) Confirm Administered Dose 1,000 mg .ROUTE .STK-MED ONE Stop: 04/01/21 19:13 Last Admin: 04/01/21 19:47 Dose: 1,000 mg Documented by: - Exam General: Alert, Oriented, Cooperative Lungs: Clear to Auscultation, Normal Respiratory Effort Cardiovascular: Regular Rate, Regular Rhythm GI/Abdominal Exam: Soft, Non-Tender Physical Findings Comment:: Scant bleeding on pad Sepsis Event Note - Evaluation Sepsis Screening Result: No Definite Risk - Focused Exam Vital Signs: Vital Signs Temp Temp Pulse Pulse Resp BP BP 04/02/21 06:01 91 103/53 L 04/02/21 05:02 96 104/48 L 04/02/21 04:03 98 115/98 H 04/02/21 03:51 37.5 C 14 04/02/21 03:31 92 106/55 L 04/02/21 03:01 92 108/57 L 04/02/21 02:31 90 108/56 L 04/02/21 02:02 89 103/54 L 04/02/21 01:31 89 97/67 04/02/21 01:02 89 84/67 L 04/02/21 00:46 88 105/55 L 04/02/21 00:32 81 100/57 L 04/02/21 00:17 85 88/48 L 04/02/21 00:01 81 109/39 L 04/02/21 00:00 36.6 C 82 14 109/39 L 04/01/21 23:46 84 97/43 L 04/01/21 23:32 82 98/48 L 04/01/21 23:17 85 115/62 04/01/21 23:05 36.7 C 88 14 108/74 04/01/21 23:01 87 108/74 04/01/21 22:46 36.7 C 88 88 12 92/49 L 92/49 L 04/01/21 22:45 36.7 C 97 12 92/49 L 04/01/21 22:31 84 99/55 L 04/01/21 22:16 87 90/48 L 04/01/21 22:07 94 87/53 L 04/01/21 22:00 36.5 C 91 12 89/32 L 04/01/21 21:42 36.5 C 94 17 83/60 L 04/01/21 21:32 36.5 C 98 15 82/59 L 04/01/21 21:22 99 16 80/52 L 04/01/21 21:12 36.6 C 100 16 90/54 L 04/01/21 21:09 36.9 C 89 12 99/55 L 04/01/21 21:02 36.7 C 95 15 87/52 L 04/01/21 20:52 36.7 C 100 15 95/62 04/01/21 20:49 36.7 C 14 04/01/21 20:42 36.7 C 100 14 BP Pulse Ox 04/02/21 06:01 98 04/02/21 05:02 100 04/02/21 04:03 100 04/02/21 03:51 04/02/21 03:31 99 04/02/21 03:01 99 04/02/21 02:31 99 04/02/21 02:02 99 04/02/21 01:31 99 04/02/21 01:02 100 04/02/21 00:46 100 04/02/21 00:32 100 04/02/21 00:17 100 04/02/21 00:01 100 04/02/21 00:00 04/01/21 23:46 99 04/01/21 23:32 100 04/01/21 23:17 100 04/01/21 23:05 04/01/21 23:01 100 04/01/21 22:46 100 04/01/21 22:45 04/01/21 22:31 100 04/01/21 22:16 100 04/01/21 22:07 98 04/01/21 22:00 98 04/01/21 21:42 98 04/01/21 21:32 99 04/01/21 21:22 100 04/01/21 21:12 100 04/01/21 21:09 97 04/01/21 21:02 96 04/01/21 20:52 97 04/01/21 20:49 101/57 L 93 L 04/01/21 20:42 101/57 L 93 L - Problem List & Annotations (1) Bleeding in early SNOMED Code(s): 74257638 Code(s): O20.9 - HEMORRHAGE IN EARLY , UNSPECIFIED Status: Acute Current Visit: Yes (2) Hemorrhage SNOMED Code(s): 228129317 Code(s): R58 - HEMORRHAGE, NOT ELSEWHERE CLASSIFIED Status: Acute Current Visit: Yes (3) Acute blood loss anemia SNOMED Code(s): 859050042 Code(s): D62 - ACUTE POSTHEMORRHAGIC ANEMIA Status: Acute Current Visit: Yes (4) Blood transfusion during current hospitalisation SNOMED Code(s): 924486323, 303297742 Code(s): KGH5654 - Status: Acute Current Visit: Yes (5) S/P dilatation and curettage SNOMED Code(s): 175805819, 44381152, 409425278 Code(s): Z98.890 - OTHER SPECIFIED POSTPROCEDURAL STATES Status: Acute Current Visit: Yes - Problem List Review Problem List Initiated/Reviewed/Updated: Yes - My Orders Last 24 Hours: Active Orders 24 hr Category Date Time Status Admission Status [Patient Status] [ADT] Routine ADT 04/01/21 18:45 Active Communication Order [RC] ROUTINE Care 04/01/21 20:50 Active Cooling Warming Measures [RC] ASDIRECTED Care 04/01/21 20:50 Active Notify Provider [RC] ASDIRECTED Care 04/01/21 20:50 Active Oxygen Therapy [RC] ASDIRECTED Care 04/01/21 20:50 Active Ready for Discharge [RC] PER UNIT ROUTINE Care 04/02/21 07:26 Active Verify Patient Consent Obtain [RC] PER UNIT ROUTINE Care 04/01/21 18:50 Active Vital Signs [RC] Q4HR Care 04/01/21 20:50 Active Regular Diet [DIET] Diet 04/02/21 Breakfast Active Acetaminophen [TylenoL] Med 04/01/21 20:52 Active 650 mg PO Q6H PRN Methylergonovine [Methergine] Med 04/01/21 23:45 Active 0.2 mg IM Q4H Sodium Chloride 0.9% [Normal Saline] 1,000 ml Med 04/01/21 17:00 Active IV ASDIRECTED Sodium Chloride 0.9% [Normal Saline] 1,000 ml Med 04/01/21 21:00 Active IV ASDIRECTED fentaNYL [Sublimaze] Med 04/01/21 20:50 Active 50 mcg IVPUSH Q5M PRN Pad Count [Peripad Count] [WOMSER] Routine Oth 04/01/21 20:55 Ordered Schedule Procedure [COMM] Stat Oth 04/01/21 18:46 Ordered Schedule Procedure [COMM] Stat Oth 04/01/21 18:51 Ordered Transfuse Red Blood Cells [COMM] Urgent Oth 04/01/21 20:49 Ordered Medication Orders Acetaminophen (Acetaminophen 325 Mg Tab) 650 mg PO Q6H PRN PRN Reason: Pain Fentanyl (Fentanyl 100 Mcg/2 Ml Sdv) 50 mcg IVPUSH Q5M PRN PRN Reason: Pain Sodium Chloride (Normal Saline) 1,000 mls @ 999 mls/hr IV ASDIRECTED [facility] Last Admin: 04/01/21 17:17 Dose: 999 mls/hr Documented by: AILEEN Sodium Chloride (Normal Saline) 1,000 mls @ 125 mls/hr IV ASDIRECTED [facility] Last Admin: 04/02/21 00:48 Dose: 125 mls/hr Documented by: Infusion: 04/02/21 00:48 Dose: 125 mls/hr Documented by: Admin: 04/01/21 22:30 Dose: 125 mls/hr Documented by: GEORGE Methylergonovine Maleate (Methylergonovine 0.2 Mg/1 Ml Amp) 0.2 mg IM Q4H [facility] Stop: 04/02/21 07:46 Last Admin: 04/02/21 03:47 Dose: 0.2 mg Documented by: Admin: 04/01/21 23:45 Dose: 0.2 mg Documented by: GEORGE - Assessment Assessment (Free Text/Narrative):: POD#1 - Plan Plan (Free Text/Narrative):: * Patient with scheduled Methergine overnight x3 doses. Scant bleeding in this time. Will stop medication * Diarrhea likely side effect from medications used, imodium ordered * Hb this AM appropriate after 2 units PRBC's. Continue PNV on discharge * Discharge today, follow up with Dr. Maldonado in next week or so
--- NOTE | 2021-04-02 07:34 | PCM48HPAN ---
Post Anesthesia Note - EVALUATION WITHIN 48HRS OF ANESTHETIC Vital Signs in Normal Range: Yes Patient Participated in Evaluation: Yes Respiratory Function Stable: Yes Airway Patent: Yes Cardiovascular Function Stable: Yes Hydration Status Stable: Yes Pain Control Satisfactory: Yes Nausea and Vomiting Control Satisfactory: Yes Mental Status Recovered: Yes Vital Signs: Last Vital Signs Temp 99.5 F 04/02/21 03:51 Pulse 91 04/02/21 06:01 Resp 14 04/02/21 03:51 BP 103/53 L 04/02/21 06:01 Pulse Ox 98 04/02/21 06:01 - COMMENTS/OBSERVATIONS Free Text/Narrative:: Rests in bed. States doing well. No complaints
[2021-04-02] MEDS ORDERED: Loperamide 2 MG Cap PO PRN (08:08)
[2021-04-02 08:35] VITALS: BP 110/42; PULSE 87
--- NOTE | 2021-04-02 08:38 | PCM.DCSUM1 ---
Discharge Summary - Discharge Data Discharge Date: 04/02/21 Discharge Disposition: Home, Self-Care 01 Condition: Good - Referral to Home Health Primary Care Physician: Nicole Burns MD - Discharge Diagnosis/Problem(s) (1) Bleeding in early SNOMED Code(s): 92011951 ICD Code: O20.9 - HEMORRHAGE IN EARLY , UNSPECIFIED Status: Acute Current Visit: Yes (2) Hemorrhage SNOMED Code(s): 087811825 ICD Code: R58 - HEMORRHAGE, NOT ELSEWHERE CLASSIFIED Status: Acute Current Visit: Yes (3) Acute blood loss anemia SNOMED Code(s): 825827021 ICD Code: D62 - ACUTE POSTHEMORRHAGIC ANEMIA Status: Acute Current Visit: Yes (4) Blood transfusion during current hospitalisation SNOMED Code(s): 680636714, 018847280 ICD Code: [id number] - Status: Acute Current Visit: Yes (5) S/P dilatation and curettage SNOMED Code(s): 946919255, 97970320, 481810584 ICD Code: Z98.890 - OTHER SPECIFIED POSTPROCEDURAL STATES Status: Acute Current Visit: Yes - Patient Summary/Data Operative Procedure(s) Performed: Suction dilation and curettage Consults: None Recommended Follow-up Testing/Procedures: Follow up in 1-[address] Maldonado [facility] Course: 45 y/o woman presented with hemorrhage and incomplete miscarriage. Taken for D&C where received multiple uterotonics in addition to blood transfusion. Eventually stable. See operative note. Post op was maintained on scheduled methergine. Did well and was discharged on POD#1 - Patient Instructions Diet: Regular Diet as Tolerated Activity: As Tolerated Activity, Other: Pelvic rest for 2 weeks Driving: May Drive Today Showering/Bathing: May Shower Showering/Bathing, Other: May Bathe Notify Provider of: Fever, Increased Pain - Discharge Plan *PRESCRIPTION DRUG MONITORING PROGRAM REVIEWED*: Not Applicable *COPY OF PRESCRIPTION DRUG MONITORING REPORT IN PATIENT KATHERINE: Not Applicable Home Medications: Home Meds Vit Calc,Iron,Folic [ Vitamins] 1 tab PO DAILY 05/22/17 [History] Docusate Sodium [Colace] 100 mg PO Q12H PRN cap 05/24/17 [Rx] Ibuprofen [IJD: Ibuprofen] 800 mg PO Q8H tablet 05/24/17 [Rx] Acetaminophen [Tylenol] 650 mg PO Q6H PRN tablet 04/02/21 [Rx] Forms: ED Department Discharge Referrals: Tony Maldonado MD [Physician] - (2 weeks) - Discharge Summary/Plan Comment DC Time >30 min.: No Total # of Minutes for Discharge Time: 15 - Patient Data Vitals - Most Recent: Last Vital Signs Temp 36.7 C 04/02/21 08:25 Pulse 87 04/02/21 08:25 Resp 16 04/02/21 08:25 BP 110/42 L 04/02/21 08:25 Pulse Ox 98 04/02/21 08:25 Weight - Most Recent: 82.554 kg I&O - Last 24 hours: Intake & Output 04/01/21 04/02/21 04/02/21 22:59 06:59 14:59 Intake Total 3480 360 Output Total 150 410 Balance 3330 -50 Lab Results - Last 24 hrs: Laboratory Results - last 24 hr 04/01/21 04/01/21 04/01/21 Range/Units 16:53 16:53 16:53 WBC 7.00 (3.98-10.04) K/mm3 RBC 3.94 L (3.98-5.22) M/mm3 Hgb 10.6 L D (11.2-15.7) gm/dl Hct 32.2 L (34.1-44.9) % MCV 81.7 (79.4-94.8) fl MCH 26.9 (25.6-32.2) pg MCHC 32.9 (32.2-35.5) g/dl RDW Std Deviation 39.8 (36.4-46.3) fL Plt Count 272 (182-369) K/mm3 MPV 9.1 L (9.4-12.3) fl Neut % (Auto) 68.4 (34.0-71.1) % Lymph % (Auto) 21.7 (19.3-51.7) % [place] % (Auto) 7.1 (4.7-12.5) % Eos % (Auto) 2.6 (0.7-5.8) Baso % (Auto) 0.1 (0.1-1.2) % Neut # (Auto) 4.78 (1.56-6.13) K/mm3 Lymph # (Auto) 1.52 (1.18-3.74) K/mm3 [place] # (Auto) 0.50 H (0.24-0.36) K/mm3 Eos # (Auto) 0.18 (0.04-0.36) K/mm3 Baso # (Auto) 0.01 (0.01-0.08) K/mm3 PT (9.7-12.0) SECONDS INR APTT (21.7-31.4) SECONDS Fibrinogen (187-446) mg/dL Sodium 142 (136-145) mEq/L Potassium 3.5 (3.5-5.1) mEq/L Chloride 107 (98-107) mEq/L Carbon Dioxide 25 (21-32) mEq/L Anion Gap 13.5 (5-15) BUN 9 (7-18) mg/dL Creatinine 0.6 (0.55-1.02) mg/dL Est Cr Clr Drug Dosing 130.74 mL/min Estimated GFR (MDRD) > 60 (>60) mL/min BUN/Creatinine Ratio 15.0 (14-18) Glucose 116 H (70-99) mg/dL Calcium 8.3 L (8.5-10.1) mg/dL Total Bilirubin 0.3 (0.2-1.0) mg/dL AST 9 L (15-37) U/L ALT 19 (14-59) U/L Alkaline Phosphatase 42 L (46-116) U/L Total Protein 6.5 (6.4-8.2) g/dl Albumin 3.5 (3.4-5.0) g/dl Globulin 3.0 gm/dL Albumin/Globulin Ratio 1.2 (1-2) HCG, Qual Positive H (NEGATIVE) HCG, Quant 8921.0 mIU/mL SARS-CoV-2 RNA (INOCENCIA) (NEGATIVE) Blood Type Gel Antibody Screen Crossmatch 04/01/21 04/01/21 04/01/21 Range/Units 16:53 16:53 17:05 WBC (3.98-10.04) K/mm3 RBC (3.98-5.22) M/mm3 Hgb (11.2-15.7) gm/dl Hct (34.1-44.9) % MCV (79.4-94.8) fl MCH (25.6-32.2) pg MCHC (32.2-35.5) g/dl RDW Std Deviation (36.4-46.3) fL Plt Count (182-369) K/mm3 MPV (9.4-12.3) fl Neut % (Auto) (34.0-71.1) % Lymph % (Auto) (19.3-51.7) % [place] % (Auto) (4.7-12.5) % Eos % (Auto) (0.7-5.8) Baso % (Auto) (0.1-1.2) % Neut # (Auto) (1.56-6.13) K/mm3 Lymph # (Auto) (1.18-3.74) K/mm3 [place] # (Auto) (0.24-0.36) K/mm3 Eos # (Auto) (0.04-0.36) K/mm3 Baso # (Auto) (0.01-0.08) K/mm3 PT (9.7-12.0) SECONDS INR APTT (21.7-31.4) SECONDS Fibrinogen (187-446) mg/dL Sodium (136-145) mEq/L Potassium (3.5-5.1) mEq/L Chloride (98-107) mEq/L Carbon Dioxide (21-32) mEq/L Anion Gap (5-15) BUN (7-18) mg/dL Creatinine (0.55-1.02) mg/dL Est Cr Clr Drug Dosing mL/min Estimated GFR (MDRD) (>60) mL/min BUN/Creatinine Ratio (14-18) Glucose (70-99) mg/dL Calcium (8.5-10.1) mg/dL Total Bilirubin (0.2-1.0) mg/dL AST (15-37) U/L ALT (14-59) U/L Alkaline Phosphatase (46-116) U/L Total Protein (6.4-8.2) g/dl Albumin (3.4-5.0) g/dl Globulin gm/dL Albumin/Globulin Ratio (1-2) HCG, Qual (NEGATIVE) HCG, Quant mIU/mL SARS-CoV-2 RNA (INOCENCIA) Negative (NEGATIVE) Blood Type A POSITIVE Gel Antibody Screen Negative Crossmatch See Detail 04/01/21 04/01/21 04/02/21 Range/Units 19:50 19:50 05:15 WBC 7.87 (3.98-10.04) K/mm3 RBC 2.65 L (3.98-5.22) M/mm3 Hgb 7.1 L* D (11.2-15.7) gm/dl Hct 21.9 L (34.1-44.9) % MCV 82.6 (79.4-94.8) fl MCH 26.8 (25.6-32.2) pg MCHC 32.4 (32.2-35.5) g/dl RDW Std Deviation 39.1 (36.4-46.3) fL Plt Count 249 (182-369) K/mm3 MPV 9.5 (9.4-12.3) fl Neut % (Auto) 79.0 H (34.0-71.1) % Lymph % (Auto) 15.4 L (19.3-51.7) % [place] % (Auto) 4.4 L (4.7-12.5) % Eos % (Auto) 0.8 (0.7-5.8) Baso % (Auto) 0.3 (0.1-1.2) % Neut # (Auto) 6.22 H (1.56-6.13) K/mm3 Lymph # (Auto) 1.21 (1.18-3.74) K/mm3 [place] # (Auto) 0.35 (0.24-0.36) K/mm3 Eos # (Auto) 0.06 (0.04-0.36) K/mm3 Baso # (Auto) 0.02 (0.01-0.08) K/mm3 PT 12.1 H (9.7-12.0) SECONDS INR 1.13 APTT 30.2 28.9 (21.7-31.4) SECONDS Fibrinogen 150 L* (187-446) mg/dL Sodium (136-145) mEq/L Potassium (3.5-5.1) mEq/L Chloride (98-107) mEq/L Carbon Dioxide (21-32) mEq/L Anion Gap (5-15) BUN (7-18) mg/dL Creatinine (0.55-1.02) mg/dL Est Cr Clr Drug Dosing mL/min Estimated GFR (MDRD) (>60) mL/min BUN/Creatinine Ratio (14-18) Glucose (70-99) mg/dL Calcium (8.5-10.1) mg/dL Total Bilirubin (0.2-1.0) mg/dL AST (15-37) U/L ALT (14-59) U/L Alkaline Phosphatase (46-116) U/L Total Protein (6.4-8.2) g/dl Albumin (3.4-5.0) g/dl Globulin gm/dL Albumin/Globulin Ratio (1-2) HCG, Qual (NEGATIVE) HCG, Quant mIU/mL SARS-CoV-2 RNA (INOCENCIA) (NEGATIVE) Blood Type Gel Antibody Screen Crossmatch 04/02/21 04/02/21 Range/Units 05:15 05:15 WBC 7.98 (3.98-10.04) K/mm3 RBC 3.11 L (3.98-5.22) M/mm3 Hgb 8.6 L D (11.2-15.7) gm/dl Hct 26.0 L (34.1-44.9) % MCV 83.6 (79.4-94.8) fl MCH 27.7 (25.6-32.2) pg MCHC 33.1 (32.2-35.5) g/dl RDW Std Deviation 41.0 (36.4-46.3) fL Plt Count 191 (182-369) K/mm3 MPV 9.4 (9.4-12.3) fl Neut % (Auto) (34.0-71.1) % Lymph % (Auto) (19.3-51.7) % [place] % (Auto) (4.7-12.5) % Eos % (Auto) (0.7-5.8) Baso % (Auto) (0.1-1.2) % Neut # (Auto) (1.56-6.13) K/mm3 Lymph # (Auto) (1.18-3.74) K/mm3 [place] # (Auto) (0.24-0.36) K/mm3 Eos # (Auto) (0.04-0.36) K/mm3 Baso # (Auto) (0.01-0.08) K/mm3 PT 11.9 (9.7-12.0) SECONDS INR 1.11 APTT (21.7-31.4) SECONDS Fibrinogen 152 L* (187-446) mg/dL Sodium (136-145) mEq/L Potassium (3.5-5.1) mEq/L Chloride (98-107) mEq/L Carbon Dioxide (21-32) mEq/L Anion Gap (5-15) BUN (7-18) mg/dL Creatinine (0.55-1.02) mg/dL Est Cr Clr Drug Dosing mL/min Estimated GFR (MDRD) (>60) mL/min BUN/Creatinine Ratio (14-18) Glucose (70-99) mg/dL Calcium (8.5-10.1) mg/dL Total Bilirubin (0.2-1.0) mg/dL AST (15-37) U/L ALT (14-59) U/L Alkaline Phosphatase (46-116) U/L Total Protein (6.4-8.2) g/dl Albumin (3.4-5.0) g/dl Globulin gm/dL Albumin/Globulin Ratio (1-2) HCG, Qual (NEGATIVE) HCG, Quant mIU/mL SARS-CoV-2 RNA (INOCENCIA) (NEGATIVE) Blood Type Gel Antibody Screen Crossmatch Med Orders - Current: Current Medications Acetaminophen (Acetaminophen 325 Mg Tab) 650 mg PO Q6H PRN PRN Reason: Pain Fentanyl (Fentanyl 100 Mcg/2 Ml Sdv) 50 mcg IVPUSH Q5M PRN PRN Reason: Pain Sodium Chloride (Normal Saline) 1,000 mls @ 999 mls/hr IV ASDIRECTED [facility] Last Admin: 04/01/21 17:17 Dose: 999 mls/hr Documented by: Sodium Chloride (Normal Saline) 1,000 mls @ 125 mls/hr IV ASDIRECTED [facility] Last Admin: 04/02/21 00:48 Dose: 125 mls/hr Documented by: Loperamide HCl (Loperamide 2 Mg Cap) 2 mg PO Q4H PRN PRN Reason: Diarrhea Last Admin: 04/02/21 08:19 Dose: 2 mg Documented by: Discontinued Medications Carboprost Tromethamine (Carboprost Tromethamine 250 Mcg/1 Ml Amp) Confirm Administered Dose 250 mcg .ROUTE .STK-MED ONE Stop: 04/01/21 19:58 Last Admin: 04/01/21 20:11 Dose: 250 mcg Documented by: Cefazolin Sodium (Cefazolin 1 Gm Vial) 2 gm IM ONETIME ONE Stop: 04/01/21 19:02 Last Admin: 04/01/21 22:52 Dose: Not Given Documented by: Cefazolin Sodium (Cefazolin 1 Gm Vial) Confirm Administered Dose 2 gm .ROUTE .STK-MED ONE Stop: 04/01/21 19:12 Fentanyl (Fentanyl 100 Mcg/2 Ml Sdv) Confirm Administered Dose 100 mcg .ROUTE .STK-MED ONE Stop: 04/01/21 19:07 Fentanyl (Fentanyl 100 Mcg/2 Ml Sdv) Confirm Administered Dose 100 mcg .ROUTE .STK-MED ONE Stop: 04/01/21 20:28 Lidocaine HCl (Xylocaine-Mpf 1%) Confirm Administered Dose 4 mls @ as directed .ROUTE .STK-MED ONE Stop: 04/01/21 19:12 Lactated Ringer's (Ringers, Lactated) Confirm Administered Dose 1,000 mls @ as directed .ROUTE .STK-MED ONE Stop: 04/01/21 19:42 Lactated Ringer's (Ringers, Lactated) Confirm Administered Dose 1,000 mls @ as directed .ROUTE .STK-MED ONE Stop: 04/01/21 19:43 Lactated Ringer's (Ringers, Lactated) Confirm Administered Dose 1,000 mls @ as directed .ROUTE .STK-MED ONE Stop: 04/01/21 20:26 Sodium Chloride (Normal Saline) Confirm Administered Dose 1,000 mls @ as directed .ROUTE .STK-MED ONE Stop: 04/01/21 20:41 Methylergonovine Maleate (Methylergonovine 0.2 Mg/1 Ml Amp) Confirm Administered Dose 0.2 mg .ROUTE .STK-MED ONE Stop: 04/01/21 19:13 Last Admin: 04/01/21 19:55 Dose: 0.2 mg Documented by: Methylergonovine Maleate (Methylergonovine 0.2 Mg/1 Ml Amp) 0.2 mg IM Q4H TAE Stop: 04/02/21 07:46 Last Admin: 04/02/21 07:47 Dose: 0.2 mg Documented by: Metoclopramide HCl (Metoclopramide 10 Mg/2 Ml Sdv) 7.5 mg IVPUSH ONETIME ONE Stop: 04/01/21 17:04 Last Admin: 04/01/21 18:05 Dose: 7.5 mg Documented by: Midazolam HCl (Midazolam 1 Mg/Ml 2 Ml Sdv) Confirm Administered Dose 2 mg .ROUTE .STK-MED ONE Stop: 04/01/21 19:07 Miscellaneous Medication (Phenylephrine Hcl In 0.9% Nacl 1 Mg/10 Ml Syringe) Confirm Administered Dose 1 mg .ROUTE .STK-MED ONE Stop: 04/01/21 19:37 Miscellaneous Medication (Phenylephrine Hcl In 0.9% Nacl 1 Mg/10 Ml Syringe) Confirm Administered Dose 1 mg .ROUTE .STK-MED ONE Stop: 04/01/21 20:09 Misoprostol (Misoprostol 200 Mcg Tab) Confirm Administered Dose 1,000 mcg .ROUTE .STK-MED ONE Stop: 04/01/21 19:57 Last Admin: 04/01/21 20:18 Dose: 1,000 mcg Documented by: Ondansetron HCl (Ondansetron 4 Mg/2 Ml Sdv) Confirm Administered Dose 4 mg .ROUTE .STK-MED ONE Stop: 04/01/21 19:07 Propofol (Propofol 200 Mg/20 Ml Sdv) Confirm Administered Dose 200 mg .ROUTE .STK-MED ONE Stop: 04/01/21 19:07 Rocuronium [place] (Rocuronium 50 Mg/5 Ml Vial) Confirm Administered Dose 50 mg .ROUTE .STK-MED ONE Stop: 04/01/21 19:09 Tranexamic Acid (Tranexamic Acid 1,000 Mg/10 Ml Amp) Confirm Administered Dose 1,000 mg .ROUTE .STK-MED ONE Stop: 04/01/21 19:13 Last Admin: 04/01/21 19:47 Dose: 1,000 mg Documented by:
== END 2021-04-02 08:36 | disposition home or self-care (01) ==
LOC: JD.ED 16:33 → JD.SDS 18:45 → JD.OB 21:54 → JD.SDS 04-02 08:36
PROVIDERS: ATTEND Obstetrics & Gynecology
DX: O03.4 Incomplete spontaneous abortion without complication (principal); Z3A.10 10 weeks gestation of pregnancy; Z79.899 Other long term (current) drug therapy; E66.9 Obesity, unspecified; Z20.822 Contact with and (suspected) exposure to COVID-19; Z01.812 Encounter for preprocedural laboratory examination; Z68.26 Body mass index [BMI] 26.0-26.9, adult
CPT/HCPCS: 36415; 36430; 59812; 76817; 80053; 84702; 84703; 85025; 85027; 85384; 85610; 85730; 86850; 86900; 86901; 86922; 87635; 96374; 99285; A9270; J0690; J2210; J2250; J2370; J2405; J2704; J2765; J3010; J7030; J7120; P9016; 01965; 99284; U0002

== ENCOUNTER 2022-05-11 00:52 | Emergency (ER) | payer BC ==
[2022-05-11 09:44] VITALS: BP 111/91; PULSE 90
== END 2022-05-11 02:21 | disposition home or self-care (01) ==
LOC: JD.ED 00:52
DX: S80.01XA Contusion of right knee, initial encounter (principal); F17.200 Nicotine dependence, unspecified, uncomplicated; W01.198A Fall on same level from slipping, tripping and stumbling with subsequent striking against other object, initial encounter
CPT/HCPCS: 73564-26-RT; 73564-RT; 99283

== ENCOUNTER 2025-01-13 20:15 | Emergency (ER) | payer BC ==
[2025-01-13] MEDS ORDERED: Sodium Chloride 0.9% 10 ML Syringe FLUSH PRN (20:48)
[2025-01-13 20:57] LABS: BASOPHILS PERCENT AUTO 0.2 % (0.0-1.0); EOSINOPHILS ABSOLUTE AUTO 0.1 K/mm3 (0.0-0.4); EOSINOPHILS PERCENT AUTO 1.4 % (0.0-6.0); HEMATOCRIT 18.5 % (37.0-47.0); IMMATURE GRAN ABSOLUTE AUTO 0.03 K/mm3 (0.00-0.05); IMMATURE GRAN PERCENT AUTO 0.6 % (0.0-0.4); LYMPHOCYTES ABSOLUTE AUTO 1.2 K/mm3 (1.0-4.8); LYMPHOCYTES PERCENT AUTO 22.7 % (24.0-44.0); MEAN CORPUSCULAR HEMOGLOBIN 16.8 pg (28.0-32.0); MEAN CORPUSCULAR HGB CONC 25.9 g/dl (32.0-36.0); MEAN CORPUSCULAR VOLUME 64.9 fl (83.0-99.0); MONOCYTES ABSOLUTE AUTO 0.4 K/mm3 (0.0-0.8); MONOCYTES PERCENT AUTO 7.8 % (0.0-8.0); NEUTROPHILS ABSOLUTE AUTO 3.5 K/mm3 (1.8-7.7); NEUTROPHILS PERCENT AUTO 67.3 % (41.0-71.0); PLATELET COUNT,PLT 300 K/mm3 (150-400); RED BLOOD CELL COUNT 2.85 M/mm3 (4.10-5.30); WHITE BLOOD CELL COUNT,WBC 5.16 K/mm3 (3.9-11.3)
[2025-01-13 21:07] LABS: A/G RATIO 1.3 (1-2); ALBUMIN 3.6 g/dl (3.4-5.0); ANION GAP 13.2 (5-15); BILIRUBIN TOTAL 0.3 mg/dL (0.2-1.0); BUN/CREATININE RATIO 7.5 (14-18); CALCIUM 8.8 mg/dL (8.5-10.1); CREATININE 0.8 mg/dL (0.55-1.02); EST CRCL DRUG DOSING (CG) 94.01 mL/min; POTASSIUM,K 3.2 mEq/L (3.5-5.1); PROTEIN TOTAL,TP 6.3 g/dl (6.4-8.2)
[2025-01-13 21:13] LABS: INR 1.03; PROTHROMBIN TIME 10.9 SECONDS (9.7-12.0)
[2025-01-13 21:14] LABS: PTT,PARTIAL THROMBOPLSTIN TIME 22.5 SECONDS (21.7-31.4)
[2025-01-13 21:19] LABS: HEMOGLOBIN 4.8 gm/dl (12.0-16.0)
[2025-01-13] MEDS: Acetaminophen 325 MG Tab PO ONE (21:20)
[2025-01-13] MEDS: Sodium Chloride 0.9% 1,000 ML IV SCH (23:02)
[2025-01-14 02:32] VITALS: BP 119/78; PULSE 76
== END 2025-01-14 03:00 | disposition home or self-care (01) ==
LOC: JD.ED 20:15
DX: D64.89 Other specified anemias (principal); E66.9 Obesity, unspecified; Z68.27 Body mass index [BMI] 27.0-27.9, adult; Z86.16 Personal history of COVID-19; Z79.899 Other long term (current) drug therapy
CPT/HCPCS: 36415; 36430; 80053; 85025; 85610; 85730; 86850; 86900; 86901; 86922; 96360; 96361; 99284; A9270; J7030; P9016; 99283

== ENCOUNTER 2025-02-04 06:30 | Day surgery (SDC) | payer BC ==
[~2025-02-04 06:30] MED LIST: Sodium Chloride 0.9% 10 ML Syringe FLUSH PRN; Sodium Chloride 0.9% 10 ML Syringe FLUSH SCH
[2025-02-04] MEDS: Lactated Ringers 1,000 ML IV SCH (06:45)
[2025-02-04 07:02] LABS: BASOPHILS ABSOLUTE AUTO 0.0 K/mm3 (0.0-0.2); BASOPHILS PERCENT AUTO 0.9 % (0.0-1.0); EOSINOPHILS ABSOLUTE AUTO 0.2 K/mm3 (0.0-0.4); EOSINOPHILS PERCENT AUTO 3.3 % (0.0-6.0); IMMATURE GRAN ABSOLUTE AUTO 0.02 K/mm3 (0.00-0.05); IMMATURE GRAN PERCENT AUTO 0.4 % (0.0-0.4); LYMPHOCYTES ABSOLUTE AUTO 1.3 K/mm3 (1.0-4.8); LYMPHOCYTES PERCENT AUTO 29.6 % (24.0-44.0); MEAN PLATELET VOLUME 9.6 fl (9.4-12.3); MONOCYTES ABSOLUTE AUTO 0.3 K/mm3 (0.0-0.8); MONOCYTES PERCENT AUTO 6.6 % (0.0-8.0); NEUTROPHILS ABSOLUTE AUTO 2.7 K/mm3 (1.8-7.7); NEUTROPHILS PERCENT AUTO 59.2 % (41.0-71.0); NRBC ABSOLUTE 0.00 (0.00-0.02); NRBC PERCENT 0.0 % (0.0-0.2); RED BLOOD CELL COUNT 4.74 M/mm3 (4.10-5.30); WHITE BLOOD CELL COUNT,WBC 4.52 K/mm3 (3.9-11.3)
[2025-02-04 07:04] LABS: PLATELET COUNT,PLT 218 K/mm3 (150-400)
[2025-02-04] MEDS ORDERED: Ondansetron 4 MG/2 ML SDV ONE (07:14)
[2025-02-04] MEDS ORDERED: Propofol 200 MG/20 ML SDV ONE (07:14)
[2025-02-04] MEDS ORDERED: fentaNYL 100 MCG/2 ML SDV ONE (07:14)
[2025-02-04] MEDS ORDERED: Dexamethasone 4 MG/ML 5 ML MDV ONE (07:14)
[2025-02-04] MEDS ORDERED: Ketorolac 30 MG/ML SDV ONE (07:14)
[2025-02-04 07:32] LABS: BLOOD UREA NITROGEN,BUN 9.0 mg/dL (7-18); CARBON DIOXIDE,CO2 28.0 mEq/L (21-32); CHLORIDE,CL 105.0 mEq/L (98-107); CREATININE 0.6 mg/dL (0.55-1.02); EST CRCL DRUG DOSING (CG) 121.14 mL/min; ESTIMATED GFR 111.0 mL/min (>60); GLUCOSE RANDOM 83.0 mg/dL (70-99); POTASSIUM,K 3.7 mEq/L (3.5-5.1); SODIUM,NA 140.0 mEq/L (136-145)
[2025-02-04] MEDS ORDERED: Ondansetron 4 MG/2 ML SDV IVPUSH PRN (08:14)
[2025-02-04] MEDS ORDERED: fentaNYL 100 MCG/2 ML SDV IVPUSH PRN (08:14)
[2025-02-04 11:39] VITALS: BP 114/61; PULSE 64
== END 2025-02-04 11:25 | disposition home or self-care (01) ==
LOC: JD.SDS 06:30
PROVIDERS: ATTEND Obstetrics & Gynecology
DX: N81.4 Uterovaginal prolapse, unspecified (principal); D50.0 Iron deficiency anemia secondary to blood loss (chronic); Z79.899 Other long term (current) drug therapy
CPT/HCPCS: 36415; 58558; 80048; 85025; 86850; 86900; 86901; A9270; J1100; J1885; J2003; J2405; J2704; J3010; J7120; 00952